=== PATIENT | male | born 1950 | race Caucasian/White ===

== ENCOUNTER 2017-12-31 07:30 | Inpatient (IN) | payer BC, MEDICARE ==
--- NOTE | 2017-12-27 18:14 | HP ---
HISTORY AND PHYSICAL: DATE OF ADMISSION: 12/31/17 DATE OF OFFICE VISIT: 12/26/17 ATTENDING PHYSICIAN: Dr. Weiss.* (DICTATED BY BAUDILIO RODRIGUEZ) REASON FOR VISIT: History and physical prior to undergoing a left knee patellofemoral arthroplasty by Dr. Weiss on 12/31/17. CHIEF COMPLAINT: Left knee pain. HISTORY OF PRESENT ILLNESS: The patient is a very pleasant 67-year-old male who is scheduled to undergo a left knee patellofemoral arthroplasty by Dr. Weiss on 12/31/17. The patient had been set up for the same procedure last June; however, was admitted for rhabdomyolysis as well as breathing issues. At this time frame, the patient has been cleared for surgery by his primary care doctor, Dr. Cast, on 12/14/17 and he continues to have pain in his left knee, which causes him difficulty with walking. PAST MEDICAL HISTORY: 1. Hypertension. 2. Diabetes. 3. Chronic depression. 4. History of TIAs. 5. Sinus infections. 6. Hyperlipidemia. 7. Postlaminectomy syndrome, cervical fusion. 8. Cervical radiculopathy. 9. Degenerative disk disease. 10. Cellulitis of foot approximately 20 years ago. 11. BPH. 12. Lumbar disk disease. PAST SURGICAL HISTORY: 1. Neck surgery in 2013. 2. Bunionectomy, right foot in 2013. 3. Kidney stone resection in 2015. 4. Left elbow MRSA infection. 5. Left knee arthroscopy approximately 20 years ago. 6. Hiatal hernia repair. 7. Left hand carpal tunnel release. 8. Nerve block from neck and back side, status post fusion in the L5 area. CURRENT MEDICATIONS: 1. Trazodone ER 150 mg extended release at bedtime. 2. Clonazepam 0.5 mg 2 tablets b.i.d. 3. Gabapentin 400 mg 1 tablet q.h.s. 4. Bupropion 150 mg tablet extended release b.i.d. 5. Venlafaxine 150 mg 1 tablet extended release b.i.d. 6. Fish oil 1000 mg 1 tablet daily. 7. Glucosamine chondroitin 1 tablet daily. 8. Centrum Silver multivitamin daily. 9. Yamel-C tablet 1000 mg daily. 10. Calcium 600 mg 1 tablet orally daily. 11. Vitamin B12 1000 mcg extended release daily. 12. Vitamin D3 1000 units 1 capsule orally daily. 13. Vitamin E 400 units 1 capsule orally daily. 14. Lamotrigine 100 mg daily q.a.m. 15. Simvastatin 20 mg 1 tablet q.h.s. 16. Plavix 75 mg 1 tablet daily. 17. Galantamine hydrobromide 16 mg 1 tablet daily. 18. Flomax 0.4 mg 1 tablet daily. 19. Januvia 100 mg 1 tablet daily. 20. Glimepiride 4 mg 1 tablet with breakfast or main meal daily. 21. Levothyroxine 50 mcg tablet 1 tablet daily. 22. Testosterone 200 mg/mL solution 1 mL intramuscularly once a month. 23. EpiPen p.r.n. 24. . FAMILY HISTORY: Mother , diagnosed with unspecific heart disease. Father with stroke and sepsis, diagnosed with unspecified cerebral artery occlusion. Spouse . SOCIAL HISTORY: Nonsmoker. Minimal alcohol use. Currently, living alone. Postoperatively, he is planning to stay with a family member for rehabilitation. REVIEW OF SYSTEMS: General: No recent weight loss or gain. No lightheadedness or dizziness. No other history of syncopal episodes or falls since hospital admission. HEENT: No headaches. No vision changes. GI: Negative for nausea, vomiting, constipation, diarrhea. No blood seen in his stools. : Negative for urinary frequency, urgency. The patient does have a history of BPH. No history of recent kidney infection. Lungs: Denies shortness of breath or difficulty with breathing. No chronic cough. Heart: Denies palpitations, chest pain. Infectious: History of MRSA approximately 16 years ago. No history of hepatitis or HIV. Integument: No open wounds or sores. No difficulty with wound healing. Endocrine: Positive history of diabetes and positive hypothyroidism. PHYSICAL EXAMINATION General Appearance: No acute distress. Alert and oriented. Appears stated age. HEENT: Normocephalic, atraumatic. EOMI. Heart: Regular rate and rhythm. No murmurs, gallops, or rubs. Lungs: Clear to auscultation bilaterally. Abdomen: Soft, nontender, nondistended. No CVA tenderness bilaterally. Neurological: Sensation intact to light touch in bilateral lower extremities. Negative Homans' sign. Left lower extremity, posterior tibial pulses 2+. Positive dorsiflexion and plantar flexion. Range of motion 5 to 130 degrees. Positive crepitus. There was no other varus or valgus stresses. No pain associated. Positive tenderness with patella. DIAGNOSTIC STUDIES/LABORATORY DATA: X-ray of the knees including AP, tunnel and sunrise views show bi-patella that is shifted. The patient had an MRI performed on 11/23/16. ASSESSMENT: Left knee osteoarthritis, patellofemoral. PLAN: The patient is to undergo a left patellofemoral arthroplasty with Dr. Weiss on 12/31/17. He has been medically cleared by his primary doctor, Dr. Cast, for the procedure. We will contact his primary care doctor with regards to his Plavix- is OK to hold for procedure, patient has not taken 5 days prior to procedure. BAUDILIO RODRIGUEZ [id number]/[facility] #: [id number] MTDSohan
[~2017-12-31 07:30] MED LIST: Acetaminophen IV 1GM/100ML * 1,000 MG/100 ML VIAL IVPB ONE; Buffered Lidocaine 0.9% SYRIN* 5 ML/SYR SYRINGE INTRADERM ONE; Famotidine IV* 10 MG/ML 2 ML (20 mg) IV ONE
[2017-12-31] MEDS ORDERED: ceFAZolin 2 GM PREMIX (*) 2 GM/50 ML BAG IVPB ONE (09:07)
[2017-12-31] MEDS ORDERED: Famotidine IV* 10 MG/ML 2 ML (20 mg) ONE (09:07)
[2017-12-31] MEDS ORDERED: Acetaminophen IV 1GM/100ML * 100 ML ONE (09:09)
[2017-12-31] MEDS ORDERED: fentaNYL* 50 MCG/ML 2 ML VIAL (100 MCG VIAL) ONE ×4 (10:22→15:36)
[2017-12-31] MEDS ORDERED: Propofol* 10 MG/ML 20 ML BTL IV PUSH ONE (10:23)
[2017-12-31] MEDS ORDERED: Lidocaine 2% PF * 5 ML VIAL ONE ×2 (10:23→13:53)
[2017-12-31] MEDS ORDERED: Etomidate* 2 MG/ML 10 ML VIAL ONE (10:23)
[2017-12-31] MEDS ORDERED: Rocuronium* 10 MG/ML VIAL ONE (10:23)
[2017-12-31] MEDS ORDERED: Midazolam* 1 MG/ML 2 ML VIAL (2 MG) ONE (10:23)
[2017-12-31] MEDS ORDERED: Bupivacaine 0.5%* 50 ML VIAL ONE (12:10)
[2017-12-31] MEDS ORDERED: Lidocaine 1% MPF wEPI 200,000* 30 ML SDV ONE (12:10)
[2017-12-31] MEDS ORDERED: oxyCODONE/Acetamin 5/325 MG* TAB PO PRN ×2 (12:49→15:06)
[2017-12-31] MEDS ORDERED: PROCHLORPERAZINE INJ 5 MG/ML 2 ML VIAL IV PRN (12:49)
[2017-12-31] MEDS ORDERED: oxyCODONE TAB* 5 MG TAB PO PRN (12:49)
[2017-12-31] MEDS ORDERED: Naloxone* 0.4 MG/ML 1 ML VIAL IV PRN (12:49)
[2017-12-31] MEDS ORDERED: diPHENhydraMINE IV* 50 MG/ML 1 ml VIAL (BENADRYL) IV PRN (12:49)
[2017-12-31] MEDS ORDERED: Scopolamine 1.5 mg* PATCH TRANSDERM PRN (12:49)
[2017-12-31] MEDS ORDERED: Phenylephrine IV* 40 MCG/ML 10 ML SYRINGE ONE (13:52)
[2017-12-31] MEDS ORDERED: Atropine 1MG/ML INJ* 1 ML VIAL ONE (14:29)
[2017-12-31] MEDS ORDERED: Glycopyrrolate IV* 0.2 MG/ML 1 ML VIAL ONE (14:29)
[2017-12-31] MEDS ORDERED: Neostigmine Methylsulfate* 1 MG/ML 10 ML VIAL (1 mg/ml) ONE (14:29)
[2017-12-31] MEDS ORDERED: Morphine VIAL* 4 MG/ML VIAL (1 ml vial) IV PRN (15:06)
[2017-12-31] MEDS ORDERED: diPHENhydraMINE PO* 25 MG PO PRN (15:06)
[2017-12-31] MEDS ORDERED: Magnesium Hydroxide LIQ* 30 ML UDC PO PRN (15:06)
[2017-12-31] MEDS ORDERED: Bisacodyl SUPP* 10 MG SUPP PR PRN (15:06)
[2017-12-31] MEDS ORDERED: Cyclobenzaprine TAB* 10 MG PO PRN (15:06)
[2017-12-31] MEDS ORDERED: Acetaminophen TAB* 325 MG PO PRN (15:06)
[2017-12-31] MEDS ORDERED: Morphine INJ* 2 MG/ML 1 ML CARPUJECT IV PRN (15:06)
[2017-12-31] MEDS ORDERED: clonazePAM TAB(*) 0.5 MG PO PRN (15:16)
[2017-12-31] MEDS: fentaNYL* 50 MCG/ML 2 ML VIAL (100 MCG VIAL) IV PRN ×3 (15:21→15:37)
[2017-12-31] MEDS ORDERED: Ketorolac INJ* 30 MG/ML 1 ML VIAL ONE (15:28)
[2017-12-31] MEDS ORDERED: D5W 1/2 NS 1000 ML BAG* 1,000 ML IV SCH (16:00)
[2017-12-31] MEDS ORDERED: HYDROmorphone INJ* 2 MG/ML CARPUJECT SYRINGE ONE (16:02)
[2017-12-31] MEDS: HYDROmorphone INJ* 1 MG/ML CARPUJECT SYRINGE IV PRN ×2 (16:04→16:24)
--- NOTE | 2017-12-31 16:35 | RAD ---
Indication: Postop LEFT patellofemoral joint replacement. Comparison: December 26, 2017 Technique: AP and crosstable lateral views LEFT knee Report: Prosthetic patellofemoral joint in place with normal alignment in the AP and crosstable lateral views. Negative for fracture. Joint effusion, intra-articular gas, and overlying soft tissue edema and subcutaneous emphysema. Anterior cutaneous el. IMPRESSION: Unremarkable immediate postop appearance following patellofemoral joint replacement.
[2017-12-31] MEDS ORDERED: Warfarin TAB(*) 10 MG PO ONE (17:00)
[2017-12-31] MEDS: Atorvastatin* 10 MG TAB PO SCH (18:01)
[2017-12-31] MEDS: oxyCODONE/Acetamin 5/325 MG* TAB PO PRN ×2 (18:01→23:44)
[2017-12-31] MEDS ORDERED: Dextrose 50% Syringe 50 ML* 25 GM/50 ML SYRINGE IV PUSH PRN (18:31)
[2017-12-31] MEDS: NS 0.9% 1000 ML* 1,000 ML IV SCH (18:44)
[2017-12-31] MEDS: oxyCODONE TAB* 5 MG TAB PO PRN (20:02)
[2017-12-31] MEDS: traZODone TAB* 100 MG PO SCH (20:03)
[2017-12-31] MEDS: Venlafaxine EXT RELEASE CAP* 75 MG PO SCH (20:03)
[2017-12-31] MEDS: buPROPion SR TAB.SR* 150 MG PO SCH (20:04)
[2017-12-31] MEDS: Docusate CAP* 100 MG PO SCH (20:05)
[2017-12-31] MEDS: Gabapentin CAP(*) 400 MG PO SCH (20:05)
[2017-12-31] MEDS: Magnesium Hydroxide LIQ* 30 ML UDC PO SCH (20:06)
[2017-12-31] MEDS: ceFAZolin 1 GM in Dextrose (*) 1 GM/50 ML BAG IVPB SCH (21:14)
--- NOTE | 2017-12-31 22:05 | CONS ---
CONSULTATION REPORT: DATE OF CONSULT: 12/31/17 ATTENDING PHYSICIAN: Dr. Weiss. CONSULTING PHYSICIAN: Oscar Soler MD (dictation provided by Elizabeth Gerardo NP). REASON FOR CONSULT: Medical co-management in a patient admitted for knee surgery. HISTORY OF PRESENT ILLNESS: Mr. Goodwin is a 67-year-old male with a past medical history of hypertension (not on medications outpatient), diabetes not on insulin, history of TIAs with some balance difficulties, who presented to the hospital today for left knee patellofemoral arthroplasty with Dr. Weiss. Please see the dictated H and P from BAUDILIO Campos for complete details. In brief, the patient had ongoing right knee pain and had opted for operative intervention with Dr. Weiss today. The patient had been seen preoperatively for cardiac evaluation by Dr. Chele Cast, who is his primary care physician , and he had felt that he was optimized from a cardiac perspective and could proceed with surgery. Patient states that prior to coming in, he has had no acute complaints. He states his blood sugar is well controlled on his home regimen. He is not taking medications for blood pressure as he no longer needs them. PAST MEDICAL HISTORY: 1. Hypertension. 2. Type 2 diabetes, non-insulin dependent. 3. Chronic depression. 4. History of TIAs. 5. Sinus infections. 6. Hyperlipidemia. 7. Postlaminectomy syndrome, cervical fusion. 8. Cervical radiculopathy. 9. Degenerative disk disease. 10. Cellulitis of foot approximately 20 years ago. 11. BPH. 12. Lumbar disk disease. PAST SURGICAL HISTORY: Neck surgery in 2013; bunionectomy, right foot, 2013; kidney stone resection, 2015; left elbow MRSA infection, left knee arthroscopy approximately 20 years ago; hiatal hernia repair; left hand carpal tunnel release; nerve block from neck, status post fusion in the L5 area. MEDICATIONS: Outpatient: 1. Caltrate 600 plus D 1 tab p.o. q.a.m. 2. Ascorbic acid 1000 mg p.o. q.a.m. 3. Galantamine 16 mg p.o. q.a.m. 4. Gabapentin 400 mg p.o. at bedtime. 5. Cyanocobalamin 2000 mcg p.o. q.a.m. 6. Oxycodone with acetaminophen 7.5/325, 1 tablet p.o. 6 hours p.r.n. 7. Nassawad[place]-3 fatty acid 1000 mg p.o. q.a.m. 8. Levothyroxine 50 mcg p.o. q.a.m. 9. Glimepiride 4 mg p.o. q.a.m. 10. Bupropion SR 150 mg p.o. b.i.d. 11. Vitamin E 400 units p.o. q.a.m. 12. Venlafaxine ER 150 mg p.o. b.i.d. 13. Tamsulosin 0.4 mg p.o. q.a.m. 14. Simvastatin 20 mg p.o. daily. 15. Trazodone 150 mg p.o. at bedtime. 16. Lamotrigine 100 mg p.o. q.a.m. 17. Clonazepam 0.5 mg p.o. b.i.d. p.r.n. 18. Sitagliptin 100 mg p.o. q.a.m. 19. Multivitamin with mineral 1 tablet p.o. q.a.m. 20. Glucosamine and chondroitin 1 cap p.o. q.a.m. 21. Testosterone 200 mg IM monthly. 22. Clopidogrel 75 mg p.o. q.a.m. ALLERGIES: FESOTERODINE, MIRABEGRON, OXYBUTYNIN. FAMILY HISTORY: Mother with unspecified heart disease. Father with stroke and sepsis as well as unspecified cerebral artery occlusion. SOCIAL HISTORY: No report of smoking. Patient lives alone. He drinks alcohol very minimally. REVIEW OF SYSTEMS: A 14-point review of systems was completed with Mr. Goodwin and all those not mentioned above were negative. PHYSICAL EXAM: Vital Signs: Temperature 98.8, pulse rate 77, respiratory rate 18, O2 saturation 97% on 2 L nasal cannula, blood pressure 155/89. General: Mr. Goodwin is sitting up in the bed. He is eating dinner, in no acute distress. Neuro: He is alert. He is oriented x3. He moves all extremities equally. There is no focal weakness and sensory loss. Heart: S1 and S2. No murmurs, rubs, or gallops and regular. Lungs are clear to auscultation bilaterally. No accessory muscle use and good aeration. Abdomen is soft and nontender with bowel sounds positive x4. Extremities: No cyanosis or edema. Skin is intact. DIAGNOSTIC STUDIES/LAB DATA: On 12/14/17, WBC is 6.8, hemoglobin 14.8, hematocrit 44, platelet count 215,000. Sodium 138, potassium 3.8, chloride 106 , serum bicarbonate 25, BUN 23, creatinine 1.28, glucose 187. ASSESSMENT: Mr. Goodwin is a 67-year-old male with past medical history of diabetes and transient ischemic attacks, who presents to the hospital today with plan for a right knee surgery with Dr. Weiss. Our recommendations are as follows: 1. Status post right patellofemoral arthroplasty: Management per orthopedic services. Patient will have PT and OT. Patient will have pain medications p.r.n. with a bowel regimen. We will monitor H and H. 2. Diabetes: Plan to switch from D5 half normal saline to normal saline. Patient will have a consistent carbohydrate diet. We will hold his glimepiride and Januvia. He will have blood glucoses q.a.c. with lispro sliding scale coverage. 3. Hypertension: Patient's blood pressure is running about 155 to 170 and this is in the acute postoperative period. I would like to continue to monitor for now and we can add medications as needed. He is not on blood pressure medication as outpatient. 4. Hyperlipidemia and history of stroke: Continue atorvastatin. 5. Depression: Continue bupropion. 6. Anxiety: Continue clonazepam. 7. DVT prophylaxis with warfarin, per Ortho. 8. Code status is full code. TIME SPENT: Approximately 50 minutes were spent on the consultation of this patient, more than half the time spent with the patient at the bedside reviewing the events leading up to this hospitalization, performing the physical examination, and reviewing my plan of care. ELIZABETH GERARDO NP [id number]/[facility] #: [id number] ANAND
[2018-01-01] MEDS: NS 0.9% 1000 ML* 1,000 ML IV SCH ×2 (03:22→13:12)
[2018-01-01] MEDS: oxyCODONE TAB* 5 MG TAB PO PRN ×2 (03:26→19:57)
--- NOTE | 2018-01-01 03:41 | OP ---
DATE OF OPERATION: 12/31/17 - ROOM #335 DATE OF : 52 SURGEON: Otto Weiss MD FUEL AGENT: Gloria Owens RPA ANESTHESIA: Regional and general. PRE-OP DIAGNOSIS: Osteoarthritis, left patellofemoral joint. POST-OP DIAGNOSIS: Osteoarthritis, left patellofemoral joint. OPERATIVE PROCEDURE: Left patellofemoral joint arthroplasty. ESTIMATED BLOOD LOSS: Less than 25 cc. COMPLICATIONS: None. HARDWARE: Linda Persona #3 femur, 32 mm patella. SUMMARY: Mr. Goodwin is a 67-year-old male who has been having trouble with bilateral knee pain. On the left, he had very specific issues with his patellofemoral joint and had a hypoplastic set of condyles. There is also an element of instability as he could be easily be pulled one side to the other. He also had very specific crepitus and pain with compression. He had been treated conservatively with anti-inflammatories, physical therapy, injections but still had very specific complaints. I discussed with him that a patellofemoral arthroplasty should work well to decrease his pain and improve his function. Risk of surgery such as continued pain, scar formation, stiffness , DVT, pulmonary embolism, hardware failure were some of the risks discussed. He had wished to proceed. DESCRIPTION OF PROCEDURE: Patient was brought to the OR after a femoral nerve block was placed in the holding area. General anesthesia was introduced. Mckinley catheter was placed. Tourniquet was placed over the proximal left thigh and was used during the case and tourniquet time would be approximately 1 hour. Left knee was prepped and then draped. Esmarch was used to exsanguinate the leg and tourniquet was raised. Midline incision was made, centered above the patella and aiming down towards the medial side of the tibial tubercle. Incision was carried down through the skin and subcutaneous tissues. Small bleeders encountered were ligated using electrocautery. Extensor mechanism was exposed and a sharp parapatellar arthrotomy was made. Quite a bit of clear yellowish joint fluid was encountered. Care was taken not to plunge, though I did not want to damage the weightbearing surface of his medial femoral condyle. Fat pad was sharply excised and patella measured 24 mm in thickness. A nice 10 mm cut was taken. Patella was easily subluxated laterally and the knee was flexed up a little bit giving nice exposure to the topside and some of the distal femur. Drill was used to open the femoral canal and intramedullary guide was placed. Guide was adjusted until it was parallel with his epicondyles and then pinned into place. Height was then adjusted so that it appeared it would come right across the top side of his condyles. Quite hypoplastic condyles were present. Cutting guide was then pinned into place and anterior femoral cut was then taken. This was sized and the 3 seemed to fit quite nicely. This was then pinned into place and the bone mill was then run. Unfortunately, I believe the contacts are all the way down as opposed to in the middle and as a result almost no bone was taken. This was readjusted until it sat in the middle and then some bone now was resected. Three drill guide was placed and holes were drilled and trial was placed. This now sat better as it was a little countersunk on the medial side and perfectly flushed on the lateral side. Without a patella trial with flexion and extension, patella tracking seemed fine. Patella was sized and a 32 seemed to fit quite well. Holes were drilled and trial was snapped into place. Patella tracking was quite good. Trial instrumentation was removed and the knee was copiously pulse lavaged. Cement was being prepared. Femur and patella were both cemented into placed and the cement was allowed to hardened. Knee was then searched once the cement had hardened for excess cement and few small pieces were found. Knee was again copiously pulse lavaged. Parapatellar arthrotomy was repaired using interrupted #1 Vicryl sutures and the tourniquet was let down. No significant bleeding was encountered. Knee was again copiously pulse lavaged and the subcutaneous tissue was reapproximated with 2-0 Vicryl. Skin was closed using el. Gloria Owens was present throughout the case and was instrumental in positioning, instrument retraction, searching for cement, and the case could not have been done without her as the account assistant. Patient was then extubated in the OR and was stable on transfer to the recovery room. [id number]/[facility] #: [id number] MTDD
[2018-01-01] MEDS: Levothyroxine TAB* 50 MCG TAB PO SCH (05:20)
[2018-01-01] MEDS: ceFAZolin 1 GM in Dextrose (*) 1 GM/50 ML BAG IVPB SCH ×2 (05:22→13:12)
[2018-01-01 07:27] LABS: Hematocrit 38 % (42-52); Hemoglobin 12.8 g/dl (14.0-18.0); Mean Platelet Volume 8.3 um3 (7.4-10.4); Platelet Count 142 10^3/ul (150-450)
[2018-01-01 07:34] LABS: INR 0.97 (0.77-1.02)
[2018-01-01] MEDS: Insulin LISPRO* 1 UNITS UNIT SUBCUT SCH ×3 (07:40→18:22)
[2018-01-01] MEDS: oxyCODONE/Acetamin 5/325 MG* TAB PO PRN ×4 (08:02→22:16)
[2018-01-01] MEDS ORDERED: SITAGLIPTIN 100 MG PO SCH (09:00)
[2018-01-01] MEDS ORDERED: CMCS Glimepiride (NF) 2 MG TAB PO SCH (09:00)
[2018-01-01] MEDS: buPROPion SR TAB.SR* 150 MG PO SCH ×2 (09:07→22:17)
[2018-01-01] MEDS: Venlafaxine EXT RELEASE CAP* 75 MG PO SCH ×2 (09:07→22:17)
[2018-01-01] MEDS: Docusate CAP* 100 MG PO SCH ×2 (09:08→22:19)
[2018-01-01] MEDS: Vitamin THERAPEUTIC TAB PO SCH (09:08)
[2018-01-01] MEDS: Magnesium Hydroxide LIQ* 30 ML UDC PO SCH ×2 (09:08→22:19)
[2018-01-01] MEDS: lamoTRIgine TAB(*) 100 MG PO SCH (09:08)
[2018-01-01] MEDS: Tamsulosin CAP* 0.4 MG PO SCH (09:08)
[2018-01-01] MEDS: GALANTAMINE 16 MG PO SCH (09:09)
[2018-01-01] MEDS: BOR PO SCH (09:10)
[2018-01-01] MEDS: MANG PO SCH (09:10)
[2018-01-01] MEDS: MAG11 PO SCH (09:10)
[2018-01-01] MEDS: ZINC PO SCH (09:10)
[2018-01-01] MEDS: CAL PO SCH (09:10)
[2018-01-01] MEDS: COP PO SCH (09:10)
[2018-01-01] MEDS: D3 PO SCH (09:10)
--- NOTE | 2018-01-01 10:30 | PN ---
Progress Note - Progress Note Date of Service: 01/01/18 SOAP: Subjective: [Pt was seen today lying in bed. No complaints. Pain is well controlled. States that he slept well with the exception of the interruptions during the night from staff checking on him. Denies any numbness or tingling. No chest pain or SOB. Pt would like to not have his moran catheter out today. He states that should he have the catheter out before 1 week his urethra will swell up and he will be unable to urinate. ] Objective: [General: Pt is alert and oriented. NAD MSK: LLE: Left knee inspection reveals a dressing that is c/d/i. pt is able to df/pf and able to lift thigh off bed. He has full sensation to light touch distally. 2+DP pulse present. ] Vital Signs Temp 98.8 F 01/01/18 07:19 Pulse 80 01/01/18 07:19 Resp 18 01/01/18 08:02 BP 104/63 01/01/18 07:19 Pulse Ox 93 01/01/18 07:19 Intake & Output 12/31/17 01/01/18 01/01/18 18:59 06:59 18:59 Intake Total 2125 1304 150 Output Total 375 1450 Balance 1750 -146 150 Weight 210 lb Intake: IV Fluids 2050 950 LR 2000 NS (0.9%) 950 NS 50ML, Cefazolin 2G 50 IVPB 54 ABX - CEFAZOLIN 54 Oral 75 300 150 Output: Moran 375 1450 Other: # Bowel Movements 0 Assessment: [S/P Left patellafemoral joint arthroplasty ] Plan: [1. It was discussed with the pt that should he not have the catheter out today there is an increased chance of infection. It was also explained should we pull the catheter out today and problems develop we would have urology become involved in treatment. He understood this but still refused to have his catheter out. Dr. Weiss was made aware and will speak with the pt also. 2. Continue with current anticoagulation 3. WBAT, continue with PT/OT 4. Pain medication as needed ]
[2018-01-01] MEDS: Heparin VIAL(*) 5000 UNITS/ML VIAL (FIVE THOUSAND) SUBCUT SCH ×2 (12:17→22:20)
[2018-01-01] MEDS: Clopidogrel TAB* 75 MG PO SCH (12:17)
[2018-01-01] MEDS: Atorvastatin* 10 MG TAB PO SCH (16:06)
[2018-01-01] MEDS ORDERED: Warfarin TAB(*) 4 MG PO ONE (17:00)
--- NOTE | 2018-01-01 19:37 | PN ---
Subjective Date of Service: 01/01/18 Interval History: Mr. Goodwin states that his knee pain is not well controlled this afternoon. He has received pain meds and is working with his nurse to achieve better pain control. He denies other complaint including chest pain, SOB, nausea, or abdominal pain. Objective Active Medications: Acetaminophen (Tylenol Tab*) 650 mg PO Q4H PRN Atorvastatin Calcium (Lipitor*) 10 mg PO 1700 LYNNE Bisacodyl (Dulcolax Supp*) 10 mg MI DAILY PRN Bupropion HCl (Wellbutrin Sr Tab*) 150 mg PO BID LYNNE Clonazepam (Klonopin Tab(*)) 0.5 mg PO BID PRN Clopidogrel Bisulfate (Plavix Tab*) 75 mg PO QAM LYNNE Cyclobenzaprine HCl (Flexeril Tab*) 10 mg PO TID PRN Dextrose (D50w Syringe 50 Ml*) 12.5 gm IV PUSH .FOR FS < 60 - SS PRN Diphenhydramine HCl (Benadryl Po*) 25 mg PO Q6H PRN Docusate Sodium (Colace Cap*) 100 mg PO BID LYNNE Gabapentin (Neurontin Cap(*)) 400 mg PO BEDTIME LYNNE Galantamine Hydrobromide (Galantamine Er (Nf)) 16 mg PO QAM LYNNE Heparin Sodium (Porcine) (Heparin Vial(*)) 5,000 units SUBCUT Q12HR LYNNE Sodium Chloride (Ns 0.9% 1000 Ml*) 1,000 mls @ 100 mls/hr IV PER [facility] Insulin Human Lispro (Humalog*) 0 units SUBCUT AC LYNNE Ketorolac Tromethamine (Toradol Inj*) 15 mg IV PUSH Q6H LYNNE Lamotrigine (Lamictal Tab(*)) 100 mg PO QAM LYNNE Levothyroxine Sodium (Synthroid Tab*) 50 mcg PO 0600 LYNNE Magnesium Hydroxide (Milk Of Magnesia Liq*) 30 ml PO BID LYNNE Magnesium Hydroxide (Milk Of Magnesia Liq*) 30 ml PO Q6H PRN Morphine Sulfate (Morphine Inj (Syringe)*) 2 mg IV Q2H PRN Morphine Sulfate (Morphine Vial*) 4 mg IV Q2H PRN Multivitamins (Theragran Tab*) 1 tab PO DAILY LYNNE Non-Formulary Medication (Josep/D3/Mag11/Zinc/Service Line Coordinator/Ld/Bor [Caltrate 600+D Plus Tablet]) 1 tab PO QAM LYNNE Oxycodone HCl (Roxycodone Tab*) 10 mg PO Q4H PRN Oxycodone/Acetaminophen (Percocet 5/325 Tab*) 2 tab PO Q4H PRN Oxycodone/Acetaminophen (Percocet 5/325 Tab*) 1 tab PO Q4H PRN Pharmacy Profile Note (Scopolamine Patch Remove*) 1 note PATCH OFF Q72H ONE Pharmacy Profile Note (Coumadin Daily Reminder*) 1 note FOLLOW UP 1700 LYNNE Scopolamine (Transderm-Scop 1.5 Mg Patch*) 1 patch TRANSDERM Q72H PRN Tamsulosin HCl (Flomax Cap*) 0.4 mg PO QAM LYNNE Trazodone HCl (Desyrel Tab*) 150 mg PO BEDTIME LYNNE Venlafaxine HCl (Effexor Xr Cap*) 150 mg PO BID LYNNE Vital Signs: Temp Pulse Resp BP Pulse Ox 98.6 F 78 16 121/77 93 01/01/18 15:15 01/01/18 15:15 01/01/18 19:29 01/01/18 15:15 01/01/18 16:00 Oxygen Devices in Use Now: None Appearance: Male sitting up in bed in NAD Eyes: No Scleral Icterus Ears/Nose/Mouth/Throat: Mucous Membranes Moist Neck: Trachea Midline Respiratory: Symmetrical Chest Expansion and Respiratory Effort, Clear to Auscultation Cardiovascular: NL Sounds; No Murmurs; No JVD, No Edema Abdominal: No Hepatosplenomegaly Lymphatic: No Cervical Adenopathy Extremities: No Edema Skin: No Rash or Ulcers Neurological: Alert and Oriented x 3, NL Muscle Strength and Tone Nutrition: Taking PO's Result Diagrams: 01/01/18 06:57 01/01/18 06:57 Assess/Plan/Problems-Billing Assessment: Mr. Goodwin is a 67 yo male with a PMH of diabetes and htn who was admitted on 12/31/17 for a left patellofemoral joint arthroplasty. - Patient Problems (1) S/P left knee surgery Comment: - Management per ortho. - Continuing adjusting pain meds, continue bowel regimen. - PT/OT. - Monitor H/H. (2) BPH (benign prostatic hyperplasia) Comment: - Has history of urinary retention post op and is concerned about removing moran tomorrow. - Wound recommend discussing with urology before removing moran given difficulties in the past, may need to go home with catheter. (3) Diabetes Comment: - BGs well controlled. - Hold home meds and continue lispro SSI coverage with meals. (4) Hypertension Comment: - BP well controlled. - Not on meds outpatient. (5) Hyperlipidemia Comment: - Continue atorvastatin. (6) Hypothyroid Comment: - Stable. Continue Synthroid. TSH wnl 07/16/17. (7) Depression with anxiety Comment: - Continue clonazepam, buproprion, venlafexine, lamictal. (8) DVT prophylaxis Comment: - warfarin with heparin sq per ortho (9) Full code status Comment: Status and Disposition: Disposition per ortho.
[2018-01-01] MEDS: Gabapentin CAP(*) 400 MG PO SCH (22:15)
[2018-01-01] MEDS: traZODone TAB* 100 MG PO SCH (22:16)
[2018-01-02] MEDS: oxyCODONE TAB* 5 MG TAB PO PRN ×2 (00:57→21:59)
[2018-01-02] MEDS: Ketorolac INJ* 15 MG/ML 1 ML VIAL IV PUSH SCH ×2 (00:59→06:11)
[2018-01-02] MEDS: oxyCODONE/Acetamin 5/325 MG* TAB PO PRN ×3 (06:07→18:06)
[2018-01-02] MEDS: Levothyroxine TAB* 50 MCG TAB PO SCH (06:07)
[2018-01-02] MEDS: Insulin LISPRO* 1 UNITS UNIT SUBCUT SCH ×3 (07:24→18:06)
[2018-01-02 08:26] LABS: Hematocrit 36 % (42-52); Hemoglobin 12.2 g/dl (14.0-18.0); Mean Platelet Volume 8.2 um3 (7.4-10.4); Platelet Count 138 10^3/ul (150-450)
[2018-01-02 08:32] LABS: INR 1.46 (0.77-1.02)
[2018-01-02] MEDS: Vitamin THERAPEUTIC TAB PO SCH (09:04)
[2018-01-02] MEDS: Venlafaxine EXT RELEASE CAP* 75 MG PO SCH ×2 (09:04→21:48)
[2018-01-02] MEDS: Clopidogrel TAB* 75 MG PO SCH (09:04)
[2018-01-02] MEDS: buPROPion SR TAB.SR* 150 MG PO SCH ×2 (09:04→21:48)
[2018-01-02] MEDS: D3 PO SCH (09:05)
[2018-01-02] MEDS: Magnesium Hydroxide LIQ* 30 ML UDC PO SCH ×2 (09:05→22:05)
[2018-01-02] MEDS: MAG11 PO SCH (09:05)
[2018-01-02] MEDS: Docusate CAP* 100 MG PO SCH ×2 (09:05→22:04)
[2018-01-02] MEDS: Heparin VIAL(*) 5000 UNITS/ML VIAL (FIVE THOUSAND) SUBCUT SCH ×2 (09:05→21:51)
[2018-01-02] MEDS: Tamsulosin CAP* 0.4 MG PO SCH (09:05)
[2018-01-02] MEDS: lamoTRIgine TAB(*) 100 MG PO SCH (09:05)
[2018-01-02] MEDS: COP PO SCH (09:05)
[2018-01-02] MEDS: CAL PO SCH (09:05)
[2018-01-02] MEDS: BOR PO SCH (09:05)
[2018-01-02] MEDS: ZINC PO SCH (09:05)
[2018-01-02] MEDS: MANG PO SCH (09:05)
[2018-01-02] MEDS: GALANTAMINE 16 MG PO SCH (09:05)
--- NOTE | 2018-01-02 11:33 | PN ---
Progress Note - Progress Note Date of Service: 01/02/18 SOAP: Subjective: []Patient seen at bedside. Denies CP, SOB, Dizziness, Nausea. He is concerned over ability to void after moran removal and questions plans for discharge. Objective: [] Vital Signs Temp 98.2 F 01/02/18 07:11 Pulse 79 01/02/18 07:11 Resp 18 01/02/18 10:06 BP 141/66 01/02/18 07:11 Pulse Ox 93 01/02/18 07:26 Intake & Output 01/01/18 01/02/18 01/02/18 18:59 06:59 18:59 Intake Total 2338 790 225 Output Total 700 1825 Balance 1638 -1035 225 Intake: IV Fluids 1264 NS (0.9%) 1264 IVPB 114 ABX - CEFAZOLIN 114 Oral 960 790 225 Output: Moran 700 1825 Other: # Bowel Movements 0 Laboratory Last Values Hgb 12.2 g/dl (14.0-18.0) L 01/02/18 07:48 Hct 36 % (42-52) L 01/02/18 07:48 Plt Count 138 10^3/ul (150-450) L 01/02/18 07:48 MPV 8.2 um3 (7.4-10.4) 01/02/18 07:48 INR (Anticoag Therapy) 1.46 (0.77-1.02) H 01/02/18 07:48 Sodium 139 mmol/L (139-145) 01/01/18 06:57 Potassium 3.9 mmol/L (3.5-5.0) 01/01/18 06:57 Chloride 109 mmol/L (101-111) 01/01/18 06:57 Carbon Dioxide 26 mmol/L (22-32) 01/01/18 06:57 Anion Gap 4 mmol/L (2-11) 01/01/18 06:57 BUN 11 mg/dL (6-24) 01/01/18 06:57 Creatinine 1.37 mg/dL (0.67-1.17) H 01/01/18 06:57 Est GFR ( Amer) 66.9 (>60) 01/01/18 06:57 Est GFR (Non-Af Amer) 52.0 (>60) 01/01/18 06:57 BUN/Creatinine Ratio 8.0 (8-20) 01/01/18 06:57 Glucose 100 mg/dL (70-100) 01/01/18 06:57 POC Glucose (mg/dL) 97 mg/dL (70-100) 01/02/18 07:21 Calcium 8.3 mg/dL (8.6-10.3) L 01/01/18 06:57 General: Well appearing, NAD LLE: Dressing changed. Incision with well approximated wound edges, CDI without discharge and without erythema. Thigh soft. DF/PF intact. 2+ DP pulse. Sensation intact to light touch distally. BL LE: Calves supple and nontender without erythema, edema or palpable cords Assessment: []POD 2 sp left knee parellofemoral arthroplasty Plan: []WBAT PT/OT Lovenox, Coumadin 3 mg If no urination in 8 hours bladder scan, straight cath if discomfort or more than 400 ml and consult urology due to history Likely DC home tomorrow. recreation manager discussed DC plans today
--- NOTE | 2018-01-02 13:07 | PN ---
Subjective Date of Service: 01/02/18 Interval History: Aelx reports doing well today. His Mckinley catheter was removed this AM, has not voided since. Denies abdominal pain, knee pain, chest pain or SOB. He is worried about urinating after catheter removed; otherwise, he has no complains. Family History: Unchanged from Admission Social History: Unchanged from Admission Past Medical History: Unchanged from Admission Objective Active Medications: Acetaminophen (Tylenol Tab*) 650 mg PO Q4H PRN PRN Reason: FEVER/PAIN Atorvastatin Calcium (Lipitor*) 10 mg PO 1700 [facility] Last Admin: 01/01/18 16:06 Dose: 10 mg Bisacodyl (Dulcolax Supp*) 10 mg AK DAILY PRN PRN Reason: constipation Bupropion HCl (Wellbutrin Sr Tab*) 150 mg PO BID [facility] Last Admin: 01/02/18 09:04 Dose: 150 mg Clonazepam (Klonopin Tab(*)) 0.5 mg PO BID PRN PRN Reason: ANXIETY Clopidogrel Bisulfate (Plavix Tab*) 75 mg PO QAM [facility] Last Admin: 01/02/18 09:04 Dose: 75 mg Cyclobenzaprine HCl (Flexeril Tab*) 10 mg PO TID PRN PRN Reason: SPASMS Last Admin: 01/01/18 18:21 Dose: 10 mg Dextrose (D50w Syringe 50 Ml*) 12.5 gm IV PUSH .FOR FS < 60 - SS PRN PRN Reason: FS < 60 Diphenhydramine HCl (Benadryl Po*) 25 mg PO Q6H PRN PRN Reason: itching Docusate Sodium (Colace Cap*) 100 mg PO BID [facility] Last Admin: 01/02/18 09:05 Dose: Not Given Gabapentin (Neurontin Cap(*)) 400 mg PO BEDTIME [facility] Last Admin: 01/01/18 22:15 Dose: 400 mg Galantamine Hydrobromide (Galantamine Er (Nf)) 16 mg PO QAM [facility] Last Admin: 01/02/18 09:05 Dose: Not Given Heparin Sodium (Porcine) (Heparin Vial(*)) 5,000 units SUBCUT Q12HR [facility] Last Admin: 01/02/18 09:05 Dose: 5,000 units Sodium Chloride (Ns 0.9% 1000 Ml*) 1,000 mls @ 100 mls/hr IV PER RATE [facility] Last Admin: 01/01/18 13:12 Dose: 100 mls/hr Insulin Human Lispro (Humalog*) 0 units SUBCUT AC [facility] PRN Reason: Protocol Last Admin: 01/02/18 12:51 Dose: 2 unit Lamotrigine (Lamictal Tab(*)) 100 mg PO QAM [facility] Last Admin: 01/02/18 09:05 Dose: 100 mg Levothyroxine Sodium (Synthroid Tab*) 50 mcg PO 0600 [facility] Last Admin: 01/02/18 06:07 Dose: 50 mcg Magnesium Hydroxide (Milk Of Magnesia Liq*) 30 ml PO BID [facility] Last Admin: 01/02/18 09:05 Dose: Not Given Magnesium Hydroxide (Milk Of Magnesia Liq*) 30 ml PO Q6H PRN PRN Reason: constipation Morphine Sulfate (Morphine Inj (Syringe)*) 2 mg IV Q2H PRN PRN Reason: PAIN - BREAKTHROUGH Last Admin: 01/01/18 17:49 Dose: 2 mg Morphine Sulfate (Morphine Vial*) 4 mg IV Q2H PRN PRN Reason: PAIN - UNCONTROLLED Last Admin: 01/01/18 19:57 Dose: 4 mg Multivitamins (Theragran Tab*) 1 tab PO DAILY [facility] Last Admin: 01/02/18 09:04 Dose: 1 tab Non-Formulary Medication (Josep/D3/Mag11/Zinc/Relay Mechanic/Ld/Bor [Caltrate 600+D Plus Tablet]) 1 tab PO QAM [facility] Last Admin: 01/02/18 09:05 Dose: Not Given Oxycodone HCl (Roxycodone Tab*) 10 mg PO Q4H PRN PRN Reason: PAIN - SEVERE Last Admin: 01/02/18 00:57 Dose: 10 mg Oxycodone/Acetaminophen (Percocet 5/325 Tab*) 2 tab PO Q4H PRN PRN Reason: PAIN - MODERATE Last Admin: 01/02/18 10:06 Dose: 2 tab Oxycodone/Acetaminophen (Percocet 5/325 Tab*) 1 tab PO Q4H PRN PRN Reason: PAIN - MILD Pharmacy Profile Note (Scopolamine Patch Remove*) 1 note PATCH OFF Q72H ONE Stop: 01/03/18 12:50 Pharmacy Profile Note (Coumadin Daily Reminder*) 1 note FOLLOW UP 1700 [facility] Last Admin: 01/01/18 16:07 Dose: 1 note Scopolamine (Transderm-Scop 1.5 Mg Patch*) 1 patch TRANSDERM Q72H PRN PRN Reason: Nausea/Vomiting Tamsulosin HCl (Flomax Cap*) 0.4 mg PO QAM [facility] Last Admin: 01/02/18 09:05 Dose: 0.4 mg Trazodone HCl (Desyrel Tab*) 150 mg PO BEDTIME [facility] Last Admin: 01/01/18 22:16 Dose: 150 mg Venlafaxine HCl (Effexor Xr Cap*) 150 mg PO BID [facility] Last Admin: 01/02/18 09:04 Dose: 150 mg Warfarin Sodium (Coumadin Tab(*)) 3 mg PO ONCE@1700 ONE PRN Reason: Protocol Stop: 01/02/18 17:01 Vital Signs - 8 hr 01/02/18 01/02/18 01/02/18 06:07 07:11 07:26 Temperature 98.2 F Pulse Rate 79 Respiratory 16 17 17 Rate Blood Pressure 141/66 (mmHg) O2 Sat by Pulse 93 93 Oximetry 01/02/18 01/02/18 01/02/18 10:06 11:42 12:15 Temperature 97.9 F Pulse Rate 88 Respiratory 18 16 18 Rate Blood Pressure 106/70 (mmHg) O2 Sat by Pulse 96 Oximetry 01/02/18 12:47 Temperature Pulse Rate Respiratory 18 Rate Blood Pressure (mmHg) O2 Sat by Pulse Oximetry Oxygen Devices in Use Now: None, CPAP Appearance: Aler and oriented, eating lunch, appears comfortable and in NAD. Eyes: No Scleral Icterus, PERRLA Ears/Nose/Mouth/Throat: Mucous Membranes Moist Neck: NL Appearance and Movements; NL JVP, Trachea Midline Respiratory: Symmetrical Chest Expansion and Respiratory Effort, Clear to Auscultation Cardiovascular: NL Sounds; No Murmurs; No JVD, RRR Abdominal: NL Sounds; No Tenderness; No Distention Extremities: No Edema, - - Left CHEPE wrap clean and dry. Neurological: Alert and Oriented x 3, NL Muscle Strength and Tone Nutrition: Taking PO's Result Diagrams: 01/02/18 07:48 01/01/18 06:57 Assess/Plan/Problems-Billing Assessment: Mr. Goodwin is a 67 yo male with a PMH of diabetes and htn who was admitted on 4/9/18 for a left patellofemoral joint arthroplasty. - Patient Problems (1) S/P left knee surgery Current Visit: Yes Comment: - Management per ortho. - Continuing adjusting pain meds, continue bowel regimen. - PT/OT. - Monitor H/H, hemodynamically stable. (2) Hyperlipidemia Current Visit: Yes Comment: - Continue atorvastatin. (3) Hypertension Current Visit: Yes Comment: - BP well controlled. - Not on meds outpatient. (4) Diabetes Current Visit: Yes Comment: - BGs well controlled. - Hold home meds and continue lispro SSI coverage with meals. (5) BPH (benign prostatic hyperplasia) Current Visit: Yes Comment: - Has history of urinary retention post op, Mckinley already removed this AM - Will reassess this afternoon. If no void next few hours, will check PVR with a bladder scan. - May need straight cath or Mckinley upon discharge - Recommend Urological consult if no resolution (6) Hypothyroid Current Visit: No Status: Acute Code(s): E03.9 - HYPOTHYROIDISM, UNSPECIFIED SNOMED Code(s): 89595824 Comment: - Stable. Continue Synthroid. TSH wnl 07/16/17. (7) DVT prophylaxis Current Visit: No Status: Acute Code(s): HPS0406 - SNOMED Code(s): 153815236 Comment: - warfarin with heparin sq per ortho (8) Full code status Current Visit: No Status: Acute Code(s): Z78.9 - OTHER SPECIFIED HEALTH STATUS SNOMED Code(s): 859694042 Comment: Status and Disposition: In-patient, disposition per ortho.
[2018-01-02] MEDS: Atorvastatin* 10 MG TAB PO SCH (17:00)
[2018-01-02] MEDS ORDERED: Warfarin TAB(*) 3 MG PO ONE (17:00)
[2018-01-02] MEDS: Gabapentin CAP(*) 400 MG PO SCH (21:49)
[2018-01-02] MEDS: traZODone TAB* 100 MG PO SCH (21:49)
[2018-01-03 05:26] LABS: Hematocrit 38 % (42-52); Hemoglobin 12.7 g/dl (14.0-18.0); Mean Platelet Volume 8.3 um3 (7.4-10.4); Platelet Count 162 10^3/ul (150-450)
[2018-01-03 05:36] LABS: INR 1.45 (0.77-1.02)
[2018-01-03] MEDS: Levothyroxine TAB* 50 MCG TAB PO SCH (06:06)
[2018-01-03] MEDS: oxyCODONE/Acetamin 5/325 MG* TAB PO PRN (06:07)
[2018-01-03] MEDS: Vitamin THERAPEUTIC TAB PO SCH (07:40)
[2018-01-03] MEDS: Clopidogrel TAB* 75 MG PO SCH (07:40)
[2018-01-03] MEDS: Tamsulosin CAP* 0.4 MG PO SCH (07:40)
[2018-01-03] MEDS: buPROPion SR TAB.SR* 150 MG PO SCH (07:40)
[2018-01-03] MEDS: Docusate CAP* 100 MG PO SCH (07:41)
[2018-01-03] MEDS: D3 PO SCH (07:41)
[2018-01-03] MEDS: BOR PO SCH (07:41)
[2018-01-03] MEDS: GALANTAMINE 16 MG PO SCH (07:41)
[2018-01-03] MEDS: COP PO SCH (07:41)
[2018-01-03] MEDS: MANG PO SCH (07:41)
[2018-01-03] MEDS: CAL PO SCH (07:41)
[2018-01-03] MEDS: Heparin VIAL(*) 5000 UNITS/ML VIAL (FIVE THOUSAND) SUBCUT SCH (07:41)
[2018-01-03] MEDS: lamoTRIgine TAB(*) 100 MG PO SCH (07:41)
[2018-01-03] MEDS: ZINC PO SCH (07:41)
[2018-01-03] MEDS: MAG11 PO SCH (07:41)
[2018-01-03] MEDS: Venlafaxine EXT RELEASE CAP* 75 MG PO SCH (07:41)
[2018-01-03] MEDS: Magnesium Hydroxide LIQ* 30 ML UDC PO SCH (07:41)
[2018-01-03] MEDS: Insulin LISPRO* 1 UNITS UNIT SUBCUT SCH (07:42)
--- NOTE | 2018-01-03 11:15 | PN ---
Progress Note - Progress Note Date of Service: 01/03/18 SOAP: Subjective: []Patient seen at bedside. His pain is well controlled today and desires DC. Denies CP, SOB, Dizziness or nausea. His cheng is in place and per Dr Leigh will remain in place until outpatient f/u Objective: [] Vital Signs Temp 99.0 F 01/03/18 07:29 Pulse 82 01/03/18 07:29 Resp 16 01/03/18 08:10 BP 149/72 01/03/18 07:29 Pulse Ox 94 01/03/18 07:29 Intake & Output 01/02/18 01/03/18 01/03/18 18:59 06:59 18:59 Intake Total 675 1240 120 Output Total 500 1025 Balance 175 215 120 Intake: Oral 675 1240 120 Output: Urine 50 Cheng 450 1025 Other: # Bowel Movements 0 Laboratory Last Values Hgb 12.7 g/dl (14.0-18.0) L 01/03/18 04:59 Hct 38 % (42-52) L 01/03/18 04:59 Plt Count 162 10^3/ul (150-450) 01/03/18 04:59 MPV 8.3 um3 (7.4-10.4) 01/03/18 04:59 INR (Anticoag Therapy) 1.45 (0.77-1.02) H 01/03/18 04:58 Sodium 139 mmol/L (139-145) 01/01/18 06:57 Potassium 3.9 mmol/L (3.5-5.0) 01/01/18 06:57 Chloride 109 mmol/L (101-111) 01/01/18 06:57 Carbon Dioxide 26 mmol/L (22-32) 01/01/18 06:57 Anion Gap 4 mmol/L (2-11) 01/01/18 06:57 BUN 11 mg/dL (6-24) 01/01/18 06:57 Creatinine 1.37 mg/dL (0.67-1.17) H 01/01/18 06:57 Est GFR ( Amer) 66.9 (>60) 01/01/18 06:57 Est GFR (Non-Af Amer) 52.0 (>60) 01/01/18 06:57 BUN/Creatinine Ratio 8.0 (8-20) 01/01/18 06:57 Glucose 100 mg/dL (70-100) 01/01/18 06:57 POC Glucose (mg/dL) 105 mg/dL (70-100) H 01/03/18 07:35 Calcium 8.3 mg/dL (8.6-10.3) L 01/01/18 06:57 General: Well appearing, NAD LLE: Dressing changed. Incision with well approximated wound edges, CDI without discharge and without erythema. Thigh soft. DF/PF intact. 2+ DP pulse. Sensation intact to light touch distally. BL LE: Calves supple and nontender without erythema, edema or palpable cords Assessment: []POD 3 sp left knee patellofemoral arthroplasty Urinary retention Plan: []WBAT PT/OT Lovenox, Coumadin 4 mg KAYLEE Willingham Swing today Cheng to remain in place until outpt f/u Dr Leigh
[2018-01-03 11:37] VITALS: BP 129/69
--- NOTE | 2018-01-03 12:22 | DS ---
DATE OF ADMISSION AND SURGERY: 12/31/2017. DATE OF DISCHARGE: 01/03/2018. ATTENDING PHYSICIAN: Dr. Otto Weiss* (dictated by BAUDILIO Vallejo). [facility]: BAUDILIO Vallejo. PREOPERATIVE DIAGNOSIS: Osteoarthritis of the left patellofemoral joint. OPERATIVE PROCEDURE: Left patellofemoral joint arthropathy. HISTORY: Mr. Goodwin is a 67-year-old male who has been having trouble with bilateral knee pain. On the left, he had very specific issues with his patellofemoral joint and had a hypoplastic set of condyles. There is also an element of instability as he could easily be pulled one side to the other. He had very specific crepitus and pain with compression. He failed conservative management and elected to undergo a left patellofemoral joint arthroplasty. HOSPITAL COURSE: Mr. Goodwin was admitted to [facility] on 2017. He underwent a left patellofemoral joint arthroplasty without complication. Post op day one, he was seen at the bedside. He is alert and oriented in no acute distress. Left knee inspection revealed the dressing is clean, dry, and intact. He was able to plantarflex and dorsiflex as well as lift the thigh off of the bed. He has full sensation to light touch distally. 2+ dorsalis pedis pulse is present. The patient was also seen by Medicine on postop day one. On post op day two, his dressing had been removed overnight. The patient was seen. His dressing was changed. Incision was well approximately. Wound edge was clean, dry, and intact without discharge and without erythema. Thigh was soft. Dorsiflexion and plantarflexion intact. 2+ dorsalis pedis pulse. The patient was again seen by Medicine due to a void of only 25 cc and suprapubic discomfort with 500 cc of residual urine. A Moran catheter was inserted and urologist Dr. Leigh recommends that the patient be discharged with catheter in place and to follow-up with him as an outpatient. On postop day three, the patient is seen at the bedside. Temperature is 99.0, pulse is 82, respiratory rate is 16, blood pressure 149/72, pulse ox is 94. Hemoglobin is 12.7, hematocrit 38; INR 1.45. Dressing was changed. It was clean, dry, and intact. He was deemed to be medically and orthopedically stable for discharge to [facility] today. DISCHARGE MEDICATIONS: He will resume his home medications which include: 1. Venlafaxine 150 mg p.o. b.i.d. 2. Simvastatin 20 mg p.o. daily. 3. Trazodone 150 mg p.o. at bedtime. 4. Levothyroxine 15 mcg p.o. q.a.m. 5. Glimepiride 4 mg p.o. q.a.m. 6. Galantamine ER 16 mg p.o. q.a.m. 7. Plavix 75 mg p.o. q.a.m. 8. Caltrate 600+D one tab p.o. q.a.m. 9. [place]-3 fatty acids 1,000 mg p.o. q.a.m. 10. Vitamin B12 2,000 mcg p.o. q.a.m. 11. Vitamin E capsule 400 units p.o. q.a.m. 12. Testosterone 200 mg IM monthly injection. 13. Flomax 0.4 mg p.o. q.a.m. 14. Ascorbic acid 1,000 mg p.o. q.a.m. 15. Bupropion SR 150 mg p.o. b.i.d. 16. Lamotrigine 100 mg p.o. q.a.m. 17. Percocet 7.5/325 was discontinued at home due to prescribing other pain medications. 18. Gabapentin 400 mg p.o. at bedtime. 19. Clonazepam 0.5 mg p.o. b.i.d. prn max daily dose of 1 mg. 20. Sitagliptin 100 mg p.o. q.a.m. 21. Multivitamin. 22. Glucosamine Chondroitin. New medications for home: 1. Acetaminophen 650 mg p.o. q.4 hours prn max daily dose of 4,000 mg from all sources. 2. Docusate 100 mg p.o. b.i.d. prn. 3. Percocet 5/325 one to two tabs every 4 to 6 hours as needed for pain, max daily dose of 10. 4. Warfarin 2 mg tabs, take 1 to 3 tablets daily depending on INR instructions. DISCHARGE INSTRUCTIONS: Weightbearing as tolerated. Continue physical therapy and occupational therapy exercises as shown. Nurse to remove el in 10 to 12 days and do wound checks. Nurses will draw blood for INR on Sunday's and 's. Coumadin dosing, you have been getting 2 mg tablets. Dosing instructions: Take 4 mg on 01/03/2018, take 2 mg daily between 01/04 and 2017, and then recheck INR on 01/07/2018. Pain control with Percocet on one to two tabs every 4 to 6 hours as needed for pain, max daily dose 10 tabs per day. Due to urinary retention moran catheter will remain in place at discharge. You will follow up with Dr Leigh, urology, outpatient for moran removal. Follow-up with Dr. Weiss within four weeks, sooner as needed. Call for an appointment. BAUDILIO NAVARRO [id number]/[facility] #: [id number] [facility]
[2018-01-03] MEDS ORDERED: Scopolamine PATCH Remove* 1 NOTE MISC PATCH OFF ONE (12:49)
== END 2018-01-03 12:30 | DRG 320 ==
LOC: AA 08:15 → SSU 17:31
PROVIDERS: ADMIT Orthopaedic Surgery; ATTEND Orthopaedic Surgery
PROC: 0SUU09Z Supplement Left Knee Joint, Femoral Surface with Liner, Open Approach (ICD-10-PCS; 2017-12-31)
PROC: 0SUD09C Supplement Left Knee Joint with Liner, Patellar Surface, Open Approach (ICD-10-PCS; 2017-12-31)
PROC: 0T9B70Z Drainage of Bladder with Drainage Device, Via Natural or Artificial Opening (ICD-10-PCS; principal; 2018-01-02)
DX: M17.12 Unilateral primary osteoarthritis, left knee (principal); Q74.2 Other congenital malformations of lower limb(s), including pelvic girdle; Z79.84 Long term (current) use of oral hypoglycemic drugs; Z79.02 Long term (current) use of antithrombotics/antiplatelets; Z79.01 Long term (current) use of anticoagulants; I10 Essential (primary) hypertension; E11.9 Type 2 diabetes mellitus without complications; Z86.73 Personal history of transient ischemic attack (TIA), and cerebral infarction without residual deficits; Z98.1 Arthrodesis status; N40.1 Benign prostatic hyperplasia with lower urinary tract symptoms; Z87.442 Personal history of urinary calculi; Z86.14 Personal history of Methicillin resistant Staphylococcus aureus infection; Z82.49 Family history of ischemic heart disease and other diseases of the circulatory system; Z82.3 Family history of stroke; Z83.1 Family history of other infectious and parasitic diseases; Z72.89 Other problems related to lifestyle; M50.10 Cervical disc disorder with radiculopathy, unspecified cervical region; G30.9 Alzheimer's disease, unspecified; F02.80 Dementia in other diseases classified elsewhere, unspecified severity, without behavioral disturbance, psychotic disturbance, mood disturbance, and anxiety; Z80.8 Family history of malignant neoplasm of other organs or systems; M96.1 Postlaminectomy syndrome, not elsewhere classified; E78.2 Mixed hyperlipidemia; E03.9 Hypothyroidism, unspecified; E29.1 Testicular hypofunction; R33.9 Retention of urine, unspecified; F41.8 Other specified anxiety disorders; F29 Unspecified psychosis not due to a substance or known physiological condition; N32.81 Overactive bladder; G47.33 Obstructive sleep apnea (adult) (pediatric); J44.9 Chronic obstructive pulmonary disease, unspecified; I27.20 Pulmonary hypertension, unspecified; I45.10 Unspecified right bundle-branch block; Z98.42 Cataract extraction status, left eye; Z98.41 Cataract extraction status, right eye; F17.200 Nicotine dependence, unspecified, uncomplicated
CPT/HCPCS: 36415; 80048; 85014; 85018; 85049; 85610; 88305; 88311; A9270-GY; C1713; C1776; G8978-GP-CJ; G8979-GP-CI; J0461; J0690; J1170; J1644; J1885; J2001; J2250; J2270; J2704; J2710; J3010

== ENCOUNTER 2018-04-03 02:16 | Inpatient (IN) | payer BC ==
[2018-04-03] MEDS ORDERED: Acetaminophen TAB* 325 MG PO PRN (05:03)
[2018-04-03] MEDS ORDERED: Ondansetron INJ* 2 MG/ML VIAL IV PRN (05:03)
[2018-04-03] MEDS ORDERED: Dextrose 50% Syringe 50 ML* 25 GM/50 ML SYRINGE IV PUSH PRN (05:03)
[2018-04-03 05:32] LABS: Corrected Retic Count 1.5 % (0.5-1.5); Hematocrit 24 % (42-52); Hematocrit for Retic CNT 24 % (42-52); Immature Retic Fraction 0.59; Mean Corpuscular HGB Conc 33 g/dl (31-36); Mean Corpuscular Hemoglobin 31 pg (27-31); Mean Corpuscular Volume 94 fL (80-94); Mean Platelet Volume 7.6 um3 (7.4-10.4); Platelet Count 251 10^3/ul (150-450); RBC Retic Count 2.55 10^6/ul (4.6-6.2); Red Blood Count 2.55 10^6/ul (4.00-5.40); Red Cell Distribution Width 14 % (10.5-15); White Blood Count 6.3 10^3/ul (3.5-10.8)
[2018-04-03 05:37] LABS: ABS Basophils 0 10^3/ul (0-0.2); ABS Eosinophils 0.1 10^3/ul (0-0.6); ABS Lymphocytes 1.5 10^3/ul (1.0-4.8); ABS Monocytes 0.6 10^3/ul (0-0.8); ABS Neutrophils 3.9 10^3/ul (1.5-7.7); ABS Nucleated RBC 0 10^3/ul; Eosinophil % 1.6 % (0-6); Nucleated Red Blood Cells % 0
[2018-04-03 05:51] LABS: EGFR Non-African American 55.7 (>60)
[2018-04-03] MEDS: Levothyroxine TAB* 50 MCG TAB PO SCH (06:02)
[2018-04-03] MEDS: oxyCODONE/Acetamin 5/325 MG* TAB PO PRN ×2 (06:04→13:03)
[2018-04-03] MEDS: cefTRIAXone(*) 1 GM in NS 0.9% 50 ML* 50 ML IVPB SCH (06:06)
--- NOTE | 2018-04-03 07:08 | PN ---
Progress Note - Progress Note Date of Service: 04/03/18 Note: Pt seen and examined. Full note to be dictated. R knee pain after repeated falls. History of previous Left patellofemoral arthroplasty by Dr Weiss. Pt with multiple unexplained falls. Currently admitted for neuro workup. States he does not attribute to his knees specifically but feels they cannot support him. Large swollen ecchymotic knee. Limited ROM. CT scan negative. Will order formal films of knee. Recommend aspiration. Pt nervous about it so will start with compression, ice, elevation. Will continue to follow with pt. Discussed with nursing staff.
--- NOTE | 2018-04-03 07:53 | RAD ---
INDICATION: Multiple falls. Now with right thigh and knee pain. COMPARISON: Knee radiograph July 16, 2017 TECHNIQUE: Noncontrast CT examination of the pelvis and right femur. Axial images were acquired and sagittal and coronal reformats were created and independently analyzed. FINDINGS: The bones of the pelvis are intact and appropriately aligned. There is no fracture of the pelvis or either hip. Mild degenerative changes of the hips include marginal osteophyte formation. The right femur is intact. There is no fracture of the right femur. There is infiltration of the subcutaneous tissue overlying the anterior and medial thigh. Overlying the medial aspect of the supracondylar region there is hyperattenuating subcutaneous material consistent with hematoma. There are several foci. Overlying the medial right femoral condyle there is a subcutaneous hematoma measuring 2.5 x 6.4 cm in the axial plane. This extends inferiorly communicating with smaller subcutaneous hematomas. Immediately medial to the patella there is a smaller hematoma measuring 2.3 x 4.3 cm in the axial plane. The suprapatellar joint space of the right knee there is a small hyperattenuating fluid collection consistent with hemarthrosis. A Mckinley catheter is in place. There are scattered rectosigmoid diverticula. IMPRESSION: 1. No fracture or dislocation involving the pelvis or right femur. 2. There is multifocal subcutaneous hematomas overlying the anteromedial distal right femur and knee as well as a small hyperattenuating fluid collection in the suprapatellar joint space consistent with small amount of hemarthrosis.
[2018-04-03] MEDS: Aspirin 81 mg CHEW TAB* 81 MG TAB.CHEW PO SCH (08:58)
[2018-04-03] MEDS: buPROPion SR TAB.SR* 150 MG PO SCH ×2 (08:58→20:46)
[2018-04-03] MEDS: Venlafaxine EXT RELEASE CAP* 75 MG PO SCH ×2 (08:58→20:46)
[2018-04-03] MEDS: Tamsulosin CAP* 0.4 MG PO SCH (08:58)
[2018-04-03] MEDS: Calcium/Vitamin D TAB 250/125* TAB PO SCH (08:59)
[2018-04-03] MEDS: OMEGA-3 FATTY ACIDS (NF) 1,000 MG CAP PO SCH (08:59)
[2018-04-03] MEDS: GALANTAMINE 16 MG PO SCH (08:59)
[2018-04-03] MEDS: Vitamin THERAPEUTIC TAB PO SCH (08:59)
[2018-04-03] MEDS ORDERED: Clopidogrel TAB* 75 MG PO SCH (09:00)
[2018-04-03] MEDS: lamoTRIgine TAB(*) 25 MG PO SCH (09:08)
[2018-04-03] MEDS: Cyanocobalamin TAB* 500 MCG PO SCH (09:08)
[2018-04-03] MEDS: Insulin LISPRO* 1 UNITS UNIT SUBCUT SCH ×3 (09:10→17:32)
--- NOTE | 2018-04-03 11:28 | HP ---
AMENDED REPORT NOW INCLUDES COSIGNER DESIGNATION - ESIGNED BEFORE ADJUSTMENTS CC: Dr. Cast; Dr. Killian, Dr. White * HISTORY AND PHYSICAL: DATE OF ADMISSION: 04/03/18 PRIMARY CARE PROVIDER: Dr. aCst, from [place]. CONSULTING NEUROLOGIST: Dr. Killian CONSULTING ORTHOPEDIST: Dr. White ATTENDING PHYSICIAN WHILE IN THE HOSPITAL: Ramon Bear MD * (report dictated by Abrahan Appiah NP) CHIEF COMPLAINT: Falls. HISTORY OF PRESENT ILLNESS: Mr. Goodwin is a 67-year-old male patient. He has a history of anxiety, TIA, diabetes, hyperlipidemia, LAMAR, hypertension, GERD , history of degenerative disk disease, and a history of cervical radiculopathy. He also has a longstanding history of an unsteady gait and falls. He has been seeing a neurologist for the last couple of years due to, according to the patient, trouble with his gait. Over the last 2 weeks, he has had progressive worsening, increasing frequency of falls, just today alone he fell 3 times. He says he has been having trouble with his gait. He denies any weakness. He says when he is up walking, he starts getting tremors and he shakes. He says he has noticed that when he goes over thresholds, he has to stop and take his time to go over them. He says he has been having more trouble with that. He says that he has not had any change in medications. He does admit to having a chronic Mckinley for BPH. There have been no fevers or chills. No vomiting or diarrhea. He has not had any similar trouble. No chest discomfort. No shortness of breath or any cough or URI type symptoms. He actually fell once the beginning in February, broke 4 ribs on his left side. He has fallen, he says, innumerable times in the last couple of weeks and again just 3 times today. No syncopal episodes associated with it. He was concerned and actually went to [facility] and actually one week ago was over at [facility] for epistaxis, required 2 units of blood. He says he has not had any more instances and since then he has been off his Plavix, which he takes for secondary prevention to TIAs. He was evaluated at [facility] because he was there this morning for a fall. He went home, fell again, called 911. Today 's fall he says he became tremulous and shaky, lost his balance and he fell down. He was evaluated there, there was no bed for admission. It was felt that he had been out of safe discharge plan. He was found to have UTI. We were asked to evaluate for admission. PAST MEDICAL HISTORY: Significant for: 1. Anxiety. 2. TIA. 3. Diabetes. 4. Hyperlipidemia. 5. LAMAR. 6. Hypertension. 7. GERD. 8. Cervical radiculopathy. 9. Degenerative disk disease. PAST SURGICAL HISTORY: He has had a: 1. Cholecystectomy. 2. C-spine infusion. 3. Lumbar laminectomy. 4. Hiatal hernia repair. 5. Partial left knee replacement. 6. Foot surgery. 7. Bunionectomy. 8. Knee arthroscopy on the left side. HOME MEDICATIONS: Includes: 1. Aspirin 81 mg daily. 2. Flomax 0.4 mg daily. 3. Effexor 150 mg p.o. b.i.d. 4. Clonazepam 0.5 mg p.o. b.i.d. as needed. 5. Januvia 100 mg p.o. daily. 6. Percocet 1 tablet every 6 hours as needed. 7. Simvastatin 20 mg daily. 8. Levothyroxine 15 mcg daily. 9. Glimepiride 4 mg daily. 10. Galantamine 16 mg daily. 11. Trazodone 150 mg at bedtime. 12. Lamictal 100 mg p.o. daily. 13. Wellbutrin 150 mg p.o. daily. 14. Neurontin 400 mg p.o. daily. 15. Fish oil 1 capsule daily. 16. Vitamin D 1000 units p.o. daily. 17. Vitamin E 400 units daily. 18. Calcium with vitamin D 1 tablet daily. 19. Multivitamin 1 tablet daily. 20. Glucosamine/chondroitin 1 tablet daily. 21. B12 2000 mcg p.o. daily. 22. Vitamin C 1000 mg p.o. daily. ALLERGIES TO MEDICATIONS: Include OXYBUTYNIN, MIRABEGRON, FESOTERODINE. FAMILY HISTORY: He said his mother of old age. Father had a history of COPD. SOCIAL HISTORY: He does live alone. He does not smoke. He does not drink. Surrogate decision maker is his stepchildren. REVIEW OF SYSTEMS: There is no documented fever. He denies having any significant weight change. There is no double vision. He denies having any ear discharge. There is no rhinorrhea. No sore throat. No thyroid enlargement. Denies having any chest pain. There is no orthopnea. There is no nocturnal dyspnea. He denies having any abdominal pain. There is no nausea. No vomiting. There is no dysuria. Denied any frequency. No seizure. No loss of consciousness. No pruritus. No skin ulcerations. Review of 14 systems was completed and all others negative. PHYSICAL EXAMINATION GENERAL: At this time, Mr. Goodwin is a 67-year-old male patient. He is sitting in the hospital bed. He does not appear to be in any acute distress. VITAL SIGNS: Blood pressure 128/72, pulse 91, respirations 18, O2 sats 100% on 2 L, temperature 98.7. HEENT: Head: Atraumatic, normocephalic. Eyes: EOMs are intact. Sclerae anicteric, not pale. Throat: Oral mucosa appears to be moist. No oropharyngeal erythema. NECK: Supple. LUNGS: Clear to auscultation bilaterally. No wheezes, rales, or rhonchi. HEART: Sounds S1, S2. Regular rate and rhythm. No murmurs, rubs, or gallops. ABDOMEN: Soft, it was flat, nontender. Bowel sounds are present. EXTREMITIES: He is moving upper extremities with 5/5 strength. Lower extremities, he has plantar and dorsiflexion with 5/5 strength. He has the flexion at the knee and extension at the knee bilaterally 5/5 strength. He has limited range of motion to his right knee as he has a significant amount of ecchymosis and swelling and pain along the medial aspect of his right knee. He says he did land on this knee today. Pulses were 2+ throughout. No peripheral edema. There is a significant effusion on the right knee. NEUROLOGICAL: He is awake, alert, oriented x3. His speech is clear. Tongue is midline. Property Claim Rep are equal. He had [id number] intact bilaterally. No gross focal deficits. I did not ambulate him because of the severity of the injury to his right knee. SKIN: His skin was intact. Again, he has multiple areas of ecchymosis near the right flank, near the right knee and along the right biceps area from falls. DIAGNOSTIC STUDIES/LAB DATA: An imaging showed today, EKG shows sinus tachycardia, rate of 100. He had no ST elevations or T-wave inversions noted. He had labs at [place], WBC of 8.2, RBC at 2.78, hemoglobin 8.6, hematocrit 26. His H and H does appear to be down from December of this year at 12.7, we will need to monitor and his platelet count was 292, INR was 0.92. He had a PTT at 21.4. Urine showed 1+ glucose, pH is 6, positive nitrite, 1+ leukocyte esterase, 3 to 5 rbc's, wbc's were too numerous to count. Glucose today was 239 , BUN 35, creatinine 1.9. His baseline appears to be right around 1.3. Sodium 133, potassium 3.9, chloride of 98, bicarb was 22, mag 1.9, calcium 8.1, total bili is 0.9, AST 20, ALT 29, CK was 63, alk phos 137, these are again [place] [facility]. BNP was 9, troponin 0.007. TSH is 7.4, CK 3. He did have a CT brain at [place], no acute intracranial abnormalities are seen. He did have atrophy and an old left cerebellar infarct similar to prior study. He had an x-ray of the knee, which showed minor degenerative change and swelling. He had chest x-ray, which showed no change in left rib fractures compared to prior study, possible small left effusion. Old medical records were reviewed. ASSESSMENT AND PLAN: Mr. Goodwin is a 67-year-old male patient coming into our hospital today as a direct admit from [facility] for complaints of fall. He will be admitted under inpatient status for: 1. Falls: Etiology is unclear. I am concerned that there might be an underlying neurological condition contributing to the falls and his gait disturbances such as Parkinson's, although it is difficult to test his gait at this point because of the significant injury to his knee. I would like to touch base with Neurology and have them weigh in and evaluate the patient later today to see if they have any recommendations. I am checking a B12. I will repeat his TSH. I am going to get the records from Dr. Spann's office, his outpatient neurologist to see what workups have already been done. If the knee is stable and there is not any fracture after imaging exam, I am going to get a CT, then I would certainly get Physical Therapy involved, but before doing so, the patient is on bed rest until I can firmly rule out that there is not any fractures or any pathology where the patient would be nonweightbearing and we will get Orthopedics involved. 2. Right knee injury. Again, I suspect he may have an MCL tear or strain possibly or fractures, so I am getting a CT of the lower extremity in the pelvis. We will have Dr. White evaluate. For the time being I am applying ice. He is on bed rest until orthopedic evaluates at this point. 3. Anxiety. Continue supportive care. 4. History of TIA. He is on aspirin, continue with meds as prescribed. 5. Anemia. Sending off iron studies and B12 studies and getting a stool guaiac , repeating his H and H now, that was an H and H from 10 o'clock tonight to monitor. 6. Diabetes. We will put him on a lispro sliding scale. 7. Hyperlipidemia, continue statin therapy. 8. Obstructive sleep apnea. He does wear a BiPAP and that I have ordered. 9. Hypertension. Continue meds as prescribed. 10. Gastroesophageal reflux disease. Continue meds as prescribed. 11. Degenerative disk disease with history of cervical radiculopathy. Continue with p.r.n. pain medications. 12. DVT prophylaxis: He is high risk, we will place him on heparin subcu. 13. Code status: Full code. 14. Fluids, electrolytes, and nutrition: He can have a consistent carb diet. 15. Urinary tract infection. I will place him on Rocephin. TIME SPENT: Time spent on the admission was 70 minutes, greater than half the time spent [id number] with the patient obtaining my history and physical; other half of the time spent going over my plan of care with the patient and implementing the plan of care. I did discuss the plan of care with my attending , Dr. Bear, he is in agreement. ABRAHAN APPIAH, ARLEN [id number]/[facility] #: [id number] ANAND
--- NOTE | 2018-04-03 14:13 | CONS ---
CONSULTATION REPORT: DATE OF CONSULT: 04/03/18 PATIENT OF: Dr. Edgar De Leon, neurologist in [place], [place] and Dr. Duncan. HISTORY OF PRESENT ILLNESS: This is a 67-year-old man that I am asked to evaluate for frequent falls. His history is longstanding and goes back several years and has had a longstanding peripheral neuropathy. He has also fallen a number of times. It is unclear whether in some of these falls element of syncope. Clearly some of it he is just falling. He was recently hospitalized here in December 2007 following a fall where he had subsequent knee pain and had an orthopedic procedure on his knee. He notes that in the past six weeks' time, he has had much more frequent falls and has fallen many days out of the week. He apparently does not lose consciousness with his falls, but just loses his balance and falls. He was seen by Dr. De Leon few weeks ago in his office. I spoke to Dr. De Leon on the phone, but I do not have the outside records at this point. Dr. De Leon notes that he has felt he had evidence of peripheral neuropathy thought secondary to be due to his diabetes. He also had a right cerebellar stroke in the past and this is further reason why Dr. De Leon thought he was falling. He [facility] last evening and was transferred here for further orthopedic treatment and further evaluation. PAST MEDICAL HISTORY: He has a history of hypertension, type 2 diabetes, chronic depression, history of TIAs, right cerebellar stroke, sinus infections, hyperlipidemia, postlaminectomy syndrome, cervical fusion, cervical radiculopathy, degenerative disk disease, cellulitis of his foot 20 years ago, benign prostatic hypertrophy, lumbar disk disease. He has had neck surgery in 2013, bunionectomy in 2013. Kidney stone extraction in 2016. MRSA infections of his left elbow. Left knee arthroscopy. Left hand carpal tunnel syndrome. Status post fusion L5. CURRENT MEDICATIONS: Include at home, 1. Aspirin 81 mg daily. 2. Flomax 0.4 daily. 3. Effexor 150 b.i.d. 4. Clonazepam 0.5 b.i.d. p.r.n. 5. Januvia 100 mg q.a.m. 6. Oxycodone 1 tab p.r.n. 7. Simvastatin 20 mg daily. 8. Synthroid 50 mcg q.a.m. 9. Glimepiride 4 mg q.a.m. 10. Galantamine 16 mg q.a.m. 11. Trazodone 150 at bedtime. 12. Lamotrigine 100 mg q.a.m. 13. Wellbutrin 150 b.i.d. 14. Gabapentin 400 at bedtime. 15. Glucosamine 1 cap q.a.m. 16. B12 tablets 2000 mcg q.a.m. 17. Ascorbic acid 1000 q.a.m. ALLERGIES: Include FESOTERODINE, MIRABEGRON, OXYBUTYNIN. FAMILY HISTORY: Mother of heart disease, father of stroke and sepsis. SOCIAL HISTORY: He does not smoke. He lives alone. He drinks minimally. REVIEW OF SYSTEMS: He has no headache, no clear numbness or weakness. He does feel off balance and he feels this has slowly worsened. PHYSICAL EXAM: On exam, temperature 98.6, pulse 92, respirations 16, blood pressure 117/61. He is alert and oriented with normal speech and comprehension. Cranial nerves II through XII are intact. Fundi showed sharp disc. Motor exam revealed normal tone and strength 5/5 in arms and legs other than 4-/5 strength in intrinsic muscles of the left hand and he has atrophy in intrinsic hand muscles. Otzcoy-va-vgoc was intact. He had bilateral intention tremor. He had an unsteady gait and unsteady Romberg, which was only tested briefly because I was concerned if he fell he might injure his knee further, he did look unsteady. Sensation is decreased in glove and stocking distribution to touch. Position sense was minimally decreased in his feet. Reflexes were 3 in the left knee, right knee was not tested. Ankle jerks were trace to 1. Toes were equivocal to down-going. Reflexes in arms were 2 with a positive snout. Chest: Clear. Cardiovascular: Regular rate and rhythm. Abdomen: Soft with positive bowel sounds. DIAGNOSTIC STUDIES/LAB DATA: He had a white count of 6.3, hematocrit of 24, platelets of 251. Retic of 2.9. Chemistries here included a BUN of 26, creatinine of 1.29, glucose of 109 and another check was 151, calcium was 8.4, mag of 25, B12 of 662, folic acid greater than 20, TSH 7.75. His CT scan was done at the outside, I do not have the CT loaded into the system. However, Dr. Abrahan Appiah had sent it down to be downloaded. Apparently, it showed a right cerebellar stroke that was old and according Dr. De Leon, it has been present for sometime. Of note, the patient has also had EEGs mostly with Dr. De Leon and one read by me in June of 2017 that showed no clear tendency towards seizures. It is unclear the reason why he is on Lamictal, the patient has no idea. ASSESSMENT AND PLAN: I discussed this with the patient that he could have several reasons for his increased falling, which has worsened over the past six weeks. He could have further cerebellar stroke or more diffuse white matter disease and we will check an MRI scan for that. It is possible that some of his symptoms could be leg weakness from cervical cord disease. He has brisk reflexes, but that extends in to his arms, I am not sure that it is his cord, but he has a clear atrophy in his left hand muscles and with his past history of cervical disk disease, it would make sense to make sure he does not have some degree of myelopathy contributing to these symptoms. We will get a cervical MRI scan. It is possible that his neuropathy has worsened and we will be checking an EMG nerve conduction study to evaluate further for this. We sent off B12 and folate, which were normal. He is hypothyroid and this may be exacerbating despite treatment with Synthroid. This may need to be adjusted and improving his thyroid status may help his symptoms. He will also need physical therapy during this hospitalization. Thank you for sharing his case. [id number]/[facility] #: [id number] ANAND
--- NOTE | 2018-04-03 16:37 | RAD ---
INDICATION: Falls. Headaches. Seizures. History of left cerebellar infarct. Unsteady gait. COMPARISON: External CT brain April 02, 2018 TECHNIQUE: sagittal T1 FLAIR, axial diffusion, axial T1 FLAIR, axial T2, axial T2 FLAIR, and SWI images were acquired. FINDINGS: Craniocervical junction: The craniocervical junction appears normal. Ventricles/sulci: There is advanced cortical atrophy with compensatory dilatation of the CSF spaces. Brain parenchyma: There are no acute appearing focal parenchymal abnormalities. There is encephalomalacia with fine loss in the left cerebellar hemisphere consistent with a remote infarct. There are scant periventricular and subcortical T2-weighted hyperintensities consistent with the sequela of prior ischemia. There is no evidence of intracranial mass or mass effect. The diffusion weighted images show no evidence of acute ischemia. Intracranial hemorrhage: There is no intracranial hemorrhage. Extra-axial spaces: There are no extra-axial fluid collections or masses. Orbits: There are no MR abnormalities of the orbital structures. Paranasal sinuses/mastoid: The paranasal sinuses are clear. The mastoid air cells are well aerated.. Vascular: No abnormalities are seen. Other: None IMPRESSION: MODERATE CORTICAL ATROPHY. OLD LEFT CEREBELLAR INFARCT. MILD CHRONIC MICROVASCULAR ISCHEMIC CHANGES. NO ACUTE INTRACRANIAL FINDINGS.
--- NOTE | 2018-04-03 17:01 | RAD ---
INDICATION: Right knee pain COMPARISON: None TECHNIQUE: AP supine and crosstable lateral views were obtained. FINDINGS: There is no acute bony change. There are mild demonstrate changes with with prepatellar edema. There is also a joint effusion there may be an old patellar fracture. IMPRESSION: SOFT TISSUE EDEMA. SMALL JOINT EFFUSION. NO ACUTE BONY CHANGE.
[2018-04-03] MEDS: Atorvastatin* 10 MG TAB PO SCH (17:32)
--- NOTE | 2018-04-03 17:37 | PN ---
Subjective Date of Service: 04/03/18 Interval History: knee pain controlled. He is concerned as to the reason he has been falling otherwise has no other complaints Objective Active Medications: Acetaminophen (Tylenol Tab*) 650 mg PO Q4H PRN PRN Reason: FEVER/PAIN Aspirin (Aspirin 81 Mg Chew Tab*) 81 mg PO DAILY [facility] Last Admin: 04/03/18 08:58 Dose: 81 mg Atorvastatin Calcium (Lipitor*) 10 mg PO 1700 [facility] Bupropion HCl (Wellbutrin Sr Tab*) 150 mg PO BID [facility] Last Admin: 04/03/18 08:58 Dose: 150 mg Calcium/Vitamin D (Oscal D Tab 250/125*) 1 tab PO DAILY [facility] Last Admin: 04/03/18 08:59 Dose: 1 tab Clonazepam (Klonopin Tab(*)) 0.5 mg PO BID PRN PRN Reason: ANXIETY Cyanocobalamin (Vitamin B12 Tab*) [facility] Last Admin: 04/03/18 09:08 Dose: 2,000 mcg Dextrose (D50w Syringe 50 Ml*) 12.5 gm IV PUSH .FOR FS < 60 - SS PRN PRN Reason: FS < 60 Fish Oil (Fish Oil (Nf)) 1,000 [facility]; Protocol Last Admin: 04/03/18 08:59 Dose: Not Given Gabapentin (Neurontin Cap(*)) 400 mg PO BEDTIME [facility] Galantamine Hydrobromide (Galantamine Er (Nf)) [facility] Last Admin: 04/03/18 08:59 Dose: Not Given Ceftriaxone Sodium 1 gm/ (Sodium Chloride) 50 mls @ 200 mls/hr IVPB Q24H [facility] Last Admin: 04/03/18 06:06 Dose: 200 mls/hr Insulin Human Lispro (Humalog*) 0 units SUBCUT [facility]; Protocol Last Admin: 04/03/18 13:03 Dose: 2 units Lamotrigine (Lamictal Tab(*)) 100 mg PO QAM [facility] Last Admin: 04/03/18 09:08 Dose: 100 mg Levothyroxine Sodium (Synthroid Tab*) 50 mcg PO 0600 [facility] Last Admin: 04/03/18 06:02 Dose: 50 mcg Multivitamins (Theragran Tab*) 1 tab PO QAM [facility] Last Admin: 04/03/18 08:59 Dose: 1 tab Ondansetron HCl (Zofran Inj*) 4 mg IV Q6H PRN PRN Reason: NAUSEA Oxycodone/Acetaminophen (Percocet 5/325 Tab*) 1 tab PO Q4H PRN PRN Reason: PAIN Last Admin: 04/03/18 13:03 Dose: 1 tab Tamsulosin HCl (Flomax Cap*) 0.4 mg PO DAILY [facility] Last Admin: 04/03/18 08:58 Dose: 0.4 mg Trazodone HCl (Desyrel Tab*) 150 mg PO BEDTIME [facility] Venlafaxine HCl (Effexor Xr Cap*) 150 mg PO BID [facility] Last Admin: 04/03/18 08:58 Dose: 150 mg Vital Signs - 8 hr 04/03/18 04/03/18 04/03/18 09:35 11:17 13:03 Temperature 98.7 F Pulse Rate 95 Respiratory 18 18 18 Rate Blood Pressure 138/67 (mmHg) O2 Sat by Pulse 91 95 Oximetry 04/03/18 04/03/18 15:28 15:37 Temperature 98.4 F Pulse Rate 90 Respiratory 14 18 Rate Blood Pressure 132/65 (mmHg) O2 Sat by Pulse 97 Oximetry Oxygen Devices in Use Now: Nasal Cannula Appearance: lying flat, NAD Eyes: No Scleral Icterus, PERRLA Ears/Nose/Mouth/Throat: NL Teeth, Lips, Gums, Clear Oropharnyx, Mucous Membranes Moist Neck: NL Appearance and Movements; NL JVP, Trachea Midline, No Thyroid Enlargement, Masses Respiratory: Symmetrical Chest Expansion and Respiratory Effort, Clear to Auscultation Cardiovascular: NL Sounds; No Murmurs; No JVD, RRR Abdominal: NL Sounds; No Tenderness; No Distention, No Hepatosplenomegaly Lymphatic: No Cervical Adenopathy Extremities: - - right knee wrapped in CHEPE s/p joint aspiration Neurological: Alert and Oriented x 3, NL Muscle Strength and Tone Result Diagrams: 04/03/18 05:23 04/03/18 05:23 Assess/Plan/Problems-Billing Assessment: 67 yo M h/o TIAs and cerebellar CVA, LAMAR, HTN, DM2, cervical radiculopathy p/w recurrent falls - Patient Problems (1) Recurrent falls Comment: MRI brain with old cerebellar infarct. While this could account for falls it cannot explain increasing tempo of falls that pt describes over previous month Appreciate neurology assistance - cervical MRI and EMG pending TSH elevated - check free T3/T4 B12/folate wnl possible medication effect? - clonazepam, narcotics, flomax, lamictal and others (2) Right knee injury Comment: appreciate ortho assistance aspiration today with minimal fluid imaging without obvious fracture ice and elevate (3) History of epistaxis Comment: stable monitor (4) Urinary retention Comment: chronic moran with failed removal yesterday flomax (5) Urinary tract infection Comment: abnormal urinalysis at [place] but noted to be with a moran catheter maintain CTX moran was to be removed yesterday but failed trial void (6) DVT prophylaxis Comment: HSQ
[2018-04-03 18:04] LABS: Urine Appearance Cloudy; Urine Blood Negative (Negative); Urine Color Yellow; Urine Ketones Negative (Negative); Urine Protein Negative (Negative); Urine Red Blood Cell 3+(>10/hpf) (Absent); Urine Specific Gravity 1.021 (1.010-1.030); Urine Urobilinogen Negative (Negative); Urine White Blood Cell 3+(>20/hpf) (Absent)
[2018-04-03] MEDS: traZODone TAB* 100 MG PO SCH (20:46)
[2018-04-03] MEDS: Gabapentin CAP(*) 400 MG PO SCH (20:46)
[2018-04-03] MEDS: Heparin VIAL(*) 5000 UNITS/ML VIAL (FIVE THOUSAND) SUBCUT SCH (20:47)
--- NOTE | 2018-04-03 22:24 | CONS ---
CC: PCP, Chele Cast MD * CONSULTATION REPORT: DATE OF CONSULTATION: 04/03/18 HISTORY OF PRESENT ILLNESS: Briefly, Mr. Goodwin is a 67-year-old male, who presented to the hospital after frequent falls, 3 of them today and many over the last few weeks. He has a previous history of a left knee patellofemoral replacement done by Dr. Weiss, which he states he did well. He has had right knee pain off and on, but he does have a lot of right knee pain and bruising with swelling. He states he has difficulty with range of motion of the knee. He denies numbness or tingling. No fevers or chills. But he has had many frequent falls over the last few weeks. He just loses his balance. He has a previous history of right cerebellar stroke in the past and has difficulty with balance and proprioception. PAST MEDICAL HISTORY: Significant for hypertension, type 2 diabetes, chronic depression, history of TIAs, right cerebellar stroke, sinus infections, hyperlipidemia, post laminectomy syndrome, cervical fusion, cervical radiculopathy, DJD, cellulitis of the foot 20 years ago, benign prostatic hypertrophy, lumbar disk disease. PAST SURGICAL HISTORY: Significant for neck surgery in 2014, bunionectomy in 2014, kidney stone in 2016, MRSA infections of left elbow, left knee arthroscopy , left hand carpal tunnel syndrome, status post fusion of L5 as well as patellofemoral replacement on 12/31/17. MEDICATIONS: Current medications include: 1. Tylenol. 2. Aspirin. 3. Atorvastatin. 4. Bupropion. 5. Calcium. 6. Vitamin D. 7. Ceftriaxone. 8. Clonazepam. 9. Vitamin B12. 10. Fish oil. 11. Gabapentin. 12. Galantamine. 13. Insulin. 14. Lamotrigine. 15. Multivitamins. 16. Zofran. 17. Percocet. 18. Trazodone. 19. Tamsulosin. 20. Venlafaxine. ALLERGIES: FESOTERODINE, MIRABEGRON, OXYBUTYNIN. FAMILY HISTORY: Heart disease, stroke and sepsis. SOCIAL HISTORY: He does not smoke. He lives alone. He does not drink much. He is a community ambulator. REVIEW OF SYSTEMS: A 14-point review of systems was reviewed with the patient, significant for recent surgery on the left knee, right knee pain, right knee swelling, difficulty with balance, frequent falls. No numbness or tingling. No fever or chills. No shortness of breath, chest pain. Otherwise, remainder of the systems is negative. PHYSICAL EXAM: He is in no acute distress. He is well developed, well nourished. He is alert and oriented x3. He has pleasant mood and normal affect. Good balance and coordination of the upper extremities. Temperature 98.7, pulse is 95, respiratory rate 18, O2 is 95 on room air, blood pressure 138 /67. Examination of the right knee demonstrates skin is intact. There is abundant ecchymosis with a large effusion at the knee. He is tender laterally and diffusely about the knee. He has pain with range of motion, can flex from about 10 to about 40 degrees. His calf is soft, nontender. Sensate to light touch grossly distally with brisk cap refill. Examination of the left knee demonstrates skin is intact. There is no erythema or warmth, well-healed incision. There is no effusion. He has full range of motion of the left knee. He is sensate to light touch grossly distally with brisk cap refill. DIAGNOSTIC STUDIES/LAB DATA: CT scan of the left leg, femur demonstrates no obvious fracture or dislocation. Pelvis CT was also performed, which demonstrates no fracture or dislocation. He has subcutaneous hematomas over the distal right femur and a small hemarthrosis. There are no dedicated knee films. ASSESSMENT AND PLAN: He has a right knee effusion with large amount of ecchymosis. I am not sure exactly what happened to him. The CT scan, it was very helpful. At this point, I would recommend aspiration which she is agreeable to. The right leg was prepped and draped in usual sterile fashion; 5 cc of 1% lidocaine were injected into superolateral portal for analgesia and then a 18- gauge needle was used to try to withdraw fluid. The patient had a lot of pain, and was tender throughout and therefore I was unable to tap him. Sterile dressings were applied. A compressive Reji wrap was applied as well as ice packs. At this point, I am going to order dedicated knee films and we will continue to follow him otherwise we will have followup with Dr. Weiss on an outpatient basis. [id number]/[facility] #: [id number] [facility] HOSPITALSohan
[2018-04-04] MEDS: cefTRIAXone(*) 1 GM in NS 0.9% 50 ML* 50 ML IVPB SCH (05:43)
[2018-04-04] MEDS: Levothyroxine TAB* 50 MCG TAB PO SCH (05:47)
[2018-04-04] MEDS: Heparin VIAL(*) 5000 UNITS/ML VIAL (FIVE THOUSAND) SUBCUT SCH ×3 (05:47→21:19)
[2018-04-04 06:07] LABS: ABS Basophils 0.1 10^3/ul (0-0.2); ABS Eosinophils 0.1 10^3/ul (0-0.6); ABS Lymphocytes 1.2 10^3/ul (1.0-4.8); ABS Monocytes 0.6 10^3/ul (0-0.8); ABS Neutrophils 3.8 10^3/ul (1.5-7.7); ABS Nucleated RBC 0 10^3/ul; Eosinophil % 2.5 % (0-6); Hematocrit 25 % (42-52); Hemoglobin 8.2 g/dl (14.0-18.0); Lymphocyte % 21.3 % (25-47); Mean Corpuscular HGB Conc 33 g/dl (31-36); Mean Corpuscular Hemoglobin 31 pg (27-31); Mean Corpuscular Volume 94 fL (80-94); Mean Platelet Volume 7.9 um3 (7.4-10.4); Nucleated Red Blood Cells % 0; Platelet Count 238 10^3/ul (150-450); Red Blood Count 2.64 10^6/ul (4.00-5.40); Red Cell Distribution Width 15 % (10.5-15); White Blood Count 5.8 10^3/ul (3.5-10.8)
[2018-04-04 06:25] LABS: EGFR Non-African American 64.3 (>60)
--- NOTE | 2018-04-04 07:41 | RAD ---
HISTORY: gait problems, falls COMPARISONS: None relevant available at the time of dictation TECHNIQUE: The following sequences were obtained of the cervical spine: Sagittal T1- and T2-weighted images, sagittal STIR images, axial T2 and gradient echo images. FINDINGS: The study is limited by patient motion artifact. BRAIN AND SPINAL CORD: The visualized spinal cord is normal in caliber, position, and signal intensity. The visualized portion of the brain is unremarkable. The cerebellar tonsils are normal in position. ALIGNMENT: There is straightening of the normal cervical lordosis. The alignment is otherwise normal. VERTEBRAL BODIES: The patient is status post anterior cervical fusion at C4, C5, C6, and C7. JOINTS: There is diffuse uncovertebral and facet osteoarthritis. MUSCULATURE: Unremarkable INTERVERTEBRAL DISCS: There is diffuse loss of intervertebral disc height and T2 signal throughout the spine. AXIAL IMAGES: C2-C3: There is moderate right neural foraminal narrowing. There is no significant central canal stenosis. C3-C4: There is bilateral uncovertebral and facet hypertrophy. There is severe right and moderate left neural foraminal narrowing. There is mild narrowing of the central canal. C4-C5: Evaluation is limited by motion artifact. C5-C6: Evaluation is limited by motion artifact. C6-C7: Evaluation is limited by motion artifact. C7-T1: There is a broad-based disc osteophyte complex that is eccentric to the left. There is severe left and moderate right neuroforaminal narrowing. There is limited evaluation of the central canal. SOFT TISSUES: The visualized soft tissues of the neck are unremarkable. OTHER: None. IMPRESSION: 1. MARKEDLY LIMITED STUDY SECONDARY TO PATIENT MOTION ARTIFACT. 2. STATUS POST ANTERIOR CERVICAL FUSION. 3. DEGENERATIVE DISC DISEASE AND OSTEOARTHRITIS, DESCRIBED ABOVE.
[2018-04-04] MEDS: lamoTRIgine TAB(*) 25 MG PO SCH (08:34)
[2018-04-04] MEDS: Venlafaxine EXT RELEASE CAP* 75 MG PO SCH ×2 (08:34→21:05)
[2018-04-04] MEDS: Tamsulosin CAP* 0.4 MG PO SCH (08:34)
[2018-04-04] MEDS: Vitamin THERAPEUTIC TAB PO SCH (08:34)
[2018-04-04] MEDS: Aspirin 81 mg CHEW TAB* 81 MG TAB.CHEW PO SCH (08:34)
[2018-04-04] MEDS: buPROPion SR TAB.SR* 150 MG PO SCH ×2 (08:34→21:06)
[2018-04-04] MEDS: Calcium/Vitamin D TAB 250/125* TAB PO SCH (08:34)
[2018-04-04] MEDS: Cyanocobalamin TAB* 500 MCG PO SCH (08:34)
[2018-04-04] MEDS: Insulin LISPRO* 1 UNITS UNIT SUBCUT SCH ×3 (08:36→17:21)
[2018-04-04] MEDS: GALANTAMINE 16 MG PO SCH (08:36)
[2018-04-04] MEDS: OMEGA-3 FATTY ACIDS (NF) 1,000 MG CAP PO SCH (08:36)
[2018-04-04] MEDS: oxyCODONE/Acetamin 5/325 MG* TAB PO PRN ×2 (09:27→18:35)
--- NOTE | 2018-04-04 09:47 | PN ---
Progress Note - Progress Note Date of Service: 04/04/18 SOAP: Subjective: []Patient seen at bedside. He is comfortable with tolerable pain of his right knee. Objective: [] General: Well appearing, NAD RLE: Intact skin, no warmth or erythema. +moderate effusion with ecchymosis. Tender diffusely about knee. Passive ROM 10-110 degrees. BL calves supple and nontender without erythema or edema. Assessment: []Fall on to right knee Frequent falls at home Plan: [] Patient did not tolerate aspiration By Dr White well yesterday. Recommend continuing a compressive saul wrap and ice, follow up with Dr Weiss outpatient
--- NOTE | 2018-04-04 15:54 | PN ---
Subjective Date of Service: 04/04/18 Interval History: Walked with PT down [place] with walker. Did not feel weak. [place] improved. Concerned because he cannot predict when he will fall Knee and neck are "achy" Objective Active Medications: Acetaminophen (Tylenol Tab*) 650 mg PO Q4H PRN PRN Reason: FEVER/PAIN Aspirin (Aspirin 81 Mg Chew Tab*) 81 mg PO DAILY [facility] Last Admin: 04/04/18 08:34 Dose: 81 mg Atorvastatin Calcium (Lipitor*) 10 mg PO 1700 [facility] Last Admin: 04/03/18 17:32 Dose: 10 mg Bupropion HCl (Wellbutrin Sr Tab*) 150 mg PO BID [facility] Last Admin: 04/04/18 08:34 Dose: 150 mg Calcium/Vitamin D (Oscal D Tab 250/125*) 1 tab PO DAILY [facility] Last Admin: 04/04/18 08:34 Dose: 1 tab Clonazepam (Klonopin Tab(*)) 0.5 mg PO BID PRN PRN Reason: ANXIETY Cyanocobalamin (Vitamin B12 Tab*) 2,000 mcg PO QAM [facility] Last Admin: 04/04/18 08:34 Dose: 2,000 mcg Dextrose (D50w Syringe 50 Ml*) 12.5 gm IV PUSH .FOR FS < 60 - SS PRN PRN Reason: FS < 60 Fish Oil (Fish Oil (Nf)) 1,000 mg PO QAM [facility]; Protocol Last Admin: 04/04/18 08:36 Dose: Not Given Gabapentin (Neurontin Cap(*)) 400 mg PO BEDTIME [facility] Last Admin: 04/03/18 20:46 Dose: 400 mg Galantamine Hydrobromide (Galantamine Er (Nf)) 16 mg PO QAM [facility] Last Admin: 04/04/18 08:36 Dose: Not Given Heparin Sodium (Porcine) (Heparin Vial(*)) 5,000 units SUBCUT Q8HR [facility] Last Admin: 04/04/18 12:43 Dose: 5,000 units Ceftriaxone Sodium 1 gm/ (Sodium Chloride) 50 mls @ 200 mls/hr IVPB Q24H [facility] Last Admin: 04/04/18 05:43 Dose: 200 mls/hr Insulin Human Lispro (Humalog*) 0 units SUBCUT AC [facility]; Protocol Last Admin: 04/04/18 12:43 Dose: 4 units Lamotrigine (Lamictal Tab(*)) 100 mg PO QAM [facility] Last Admin: 04/04/18 08:34 Dose: 100 mg Levothyroxine Sodium (Synthroid Tab*) 50 mcg PO 0600 [facility] Last Admin: 04/04/18 05:47 Dose: 50 mcg Multivitamins (Theragran Tab*) 1 tab PO QAM [facility] Last Admin: 04/04/18 08:34 Dose: 1 tab Ondansetron HCl (Zofran Inj*) 4 mg IV Q6H PRN PRN Reason: NAUSEA Oxycodone/Acetaminophen (Percocet 5/325 Tab*) 1 tab PO Q4H PRN PRN Reason: PAIN Last Admin: 04/04/18 09:27 Dose: 1 tab Tamsulosin HCl (Flomax Cap*) 0.4 mg PO DAILY [facility] Last Admin: 04/04/18 08:34 Dose: 0.4 mg Trazodone HCl (Desyrel Tab*) 150 mg PO BEDTIME [facility] Last Admin: 04/03/18 20:46 Dose: 150 mg Venlafaxine HCl (Effexor Xr Cap*) 150 mg PO BID [facility] Last Admin: 04/04/18 08:34 Dose: 150 mg Vital Signs - 8 hr 04/04/18 04/04/18 04/04/18 08:02 08:50 09:19 Temperature 98.7 F Pulse Rate 95 Respiratory 18 18 Rate Blood Pressure 133/63 (mmHg) O2 Sat by Pulse 97 97 96 Oximetry 04/04/18 04/04/18 04/04/18 09:27 11:37 12:06 Temperature 98.7 F Pulse Rate 111 Respiratory 18 18 16 Rate Blood Pressure 118/72 (mmHg) O2 Sat by Pulse 97 Oximetry 04/04/18 15:21 Temperature 98.2 F Pulse Rate 94 Respiratory 15 Rate Blood Pressure 118/67 (mmHg) O2 Sat by Pulse 98 Oximetry Oxygen Devices in Use Now: None Appearance: sitting in chair, NAD Eyes: No Scleral Icterus, PERRLA Ears/Nose/Mouth/Throat: NL Teeth, Lips, Gums, Clear Oropharnyx Neck: NL Appearance and Movements; NL JVP Respiratory: Symmetrical Chest Expansion and Respiratory Effort, Clear to Auscultation Cardiovascular: RRR Abdominal: NL Sounds; No Tenderness; No Distention, No Hepatosplenomegaly Lymphatic: No Cervical Adenopathy Extremities: No Edema, - - righ knee ecchymosis and swelling Neurological: Alert and Oriented x 3, - - mild thenar atrophy, poor heel-knee- ankle movement on right Result Diagrams: 04/04/18 05:37 04/04/18 05:37 Assess/Plan/Problems-Billing Assessment: 67 yo M h/o TIAs and cerebellar CVA, LAMAR, HTN, DM2, cervical radiculopathy p/w recurrent falls - Patient Problems (1) Recurrent falls Comment: MRI brain with old cerebellar infarct. While this could account for falls it cannot explain increasing tempo of falls that pt describes over previous month Appreciate neurology assistance - cervical MRI. Poor quality. I have asked NS to evaluate and provide their input into need for surgey vs repeat cspine MRI, lumbar MRI or myelogram. TSH with normal free T3/T4 B12/folate wnl possible medication effect? - clonazepam, narcotics, flomax, lamictal and others Possible anemia contributing - check orthostatics Possible UTI at [place] (2) Right knee injury Comment: appreciate ortho assistance aspiration with minimal fluid - pt could not tolerate imaging without obvious fracture ice and elevate (3) History of epistaxis Comment: stable received transfusions at [place] in February Requesting records from last stay there monitor (4) Urinary retention Comment: chronic moran with failed removal 04/02 (5) Urinary tract infection Comment: abnormal urinalysis at [place] but noted to be with a moran catheter maintain CTX moran was to be removed 04/02 but failed trial void (6) Anemia Comment: stable stool occult blood pending recent admit [place] in February requiing 2 units PRBC (per patient) record request (7) DVT prophylaxis Comment: HSQ
[2018-04-04] MEDS: Atorvastatin* 10 MG TAB PO SCH (17:21)
[2018-04-04] MEDS: traZODone TAB* 100 MG PO SCH (21:04)
[2018-04-04] MEDS: Gabapentin CAP(*) 400 MG PO SCH (21:05)
[2018-04-05] MEDS: oxyCODONE/Acetamin 5/325 MG* TAB PO PRN ×4 (00:09→19:33)
--- NOTE | 2018-04-05 04:30 | CONS ---
CONSULTATION REPORT: DATE OF CONSULT: 04/04/18 HISTORY OF PRESENT ILLNESS: The patient is a very pleasant 67-year-old gentleman with history of hypertension, diabetes, chronic depression, TIA, cerebellar stroke, sinus infections, hyperlipidemia, status post cervical fusion and posterior lumbar fusion, who was admitted to the hospital after being transferred from [facility] for increased frequency of falls and right knee injury. I was requested to see the patient by Dr. Duncan because of MRI findings consistent with cervical spondylosis. The patient reports that he had some difficulty with balance prior to his cervical spine surgery that was stabilized. Appropriately one month ago he had one episode of weakness and then he has increased difficulty with his balance to the point where he had several falls. He reports that he feels unsteady on his feet and he had been using a cane and the last week a walker. The patient reports that he has no significant weakness in his upper and lower extremities. He has no numbness or tingling. He reports that he had no urinary or GI incontinence, although he has had a Mckinley because he reports that his urethra constricts after receiving anesthesia. PAST MEDICAL HISTORY: The patient has multiple comorbidities including hypertension, diabetes, depression, TIA, cerebellar stroke, sinus infection, hyperlipidemia, post-laminectomy syndrome, cervical fusion, degenerative disk disease, cellulitis of the right foot and joint, benign prostatic hypertrophy. PAST SURGICAL HISTORY: Anterior cervical diskectomy and fusion in 2014 in [place] and posterior fusion also in [place], bunionectomy, kidney stone extraction, MRSA infection to the left elbow, left knee arthroplasty. MEDICATIONS: The patient was on: 1. Aspirin. 2. Flomax. 3. Effexor. 4. Clonazepam. 5. Januvia. 6. Oxycodone. 7. Simvastatin. 8. Synthroid. 9. Glimepiride. 10. Galantamine. 11. Trazodone. 12. Lamotrigine. 13. Wellbutrin. 14. Gabapentin. 15. Glucosamine. 16. B12. 17. Ascorbic acid. ALLERGIES: The patient is allergic to FESOTERODINE, MIRABEGRON, OXYBUTYNIN. FAMILY HISTORY: Heart disease, stroke, sepsis. SOCIAL HISTORY: The patient is retired. He is a . He lives alone and he has one daughter, who takes care of him. Tobacco, negative. Alcohol, occasional. Recreational drug use, negative. PHYSICAL EXAM: The patient is not in acute distress. He lies comfortably in the bed and he is arousable. He is awake, alert, and oriented x3. His pupils are equal and reactive. Cranial nerves II through XII grossly intact. Motor 4- 5/5 in all extremities with the exception of his right knee extension, which is somewhat decreased in range of motion and his strength is 4-/5, possibly due to his recent right knee injury. Sensory is grossly intact to light touch. Deep tendon reflexes +1 in the upper extremities, +2 in the lower extremities. The right knee is not examined due to his recent injury. The patient has Babinski bilaterally. No clonus. Niyah's negative. The patient is ambulating with a wide, unsteady gait. Romberg test is negative. The patient has no dysmetria. He has some fine tremor. DIAGNOSTIC STUDIES/LAB DATA: The patient had an MRI of the brain revealing evidence of old cerebellar strokes. The patient also had MRI of the cervical spine that unfortunately is of suboptimal quality due to the patient's motion artifact as well as metallic artifact from his previous anterior cervical diskectomy and fusion between C4 and C7. Nevertheless, there is a stenosis at C3-4 and anterior disk-osteophyte complex at C7-T1 with significant canal stenosis in my review. Unfortunately, it is difficult to evaluate for cord signal changes, but on the sagittal imaging there is no apparent change. ASSESSMENT: The patient is a very pleasant 67-year-old gentleman with multiple medical problems with increased difficulties with his balance. The patient has evidence of cervical myelopathy in my exam, although MRI of the cervical spine is of suboptimal quality to evaluate for the degree of stenosis. For that reason, we would consider repeating the MRI of the cervical spine and also obtain a CT scan of the cervical spine with flexion-extension x-ray of the cervical spine. If the pathology on the repeat MRI of the cervical spine is not able to justify his symptoms then MRI of the thoracic spine may be also considered. The patient recently evaluated by Dr. Killian and he is scheduled for EMG. I will be happy to discuss with Dr. Killian and Dr. Duncan regarding the findings of further imaging and if they confirm significant stenosis at C7- T1 level, the patient will benefit from the posterior cervical decompression and fusion between C2 and T2 with multilevel laminectomies. We discussed the possibility of surgical intervention with the patient and the plan for obtaining further imaging for finalizing the plan. Thank you for allowing us to participate in the care of this patient. Please do not hesitate to contact our office in case you have any further questions or concerns regarding the care of this patient. [id number]/[facility] #: [id number] [facility]
--- NOTE | 2018-04-05 04:47 | PN ---
NEUROLOGICAL FOLLOWUP NOTE: DATE OF FOLLOWUP: 04/04/18 PATIENT OF: Dr. Duncan. HISTORY OF PRESENT ILLNESS: Mr. Goodwin has no change in his gait since yesterday. If anything he feels little improved. He has some aching in his knee and he notes that his falls are somewhat unpredictable. MEDICATIONS: His medications include: 1. Aspirin 81 mg daily. 2. Lipitor 10 mg daily. 3. Wellbutrin 150 b.i.d. 4. Clonazepam 0.5 b.i.d. p.r.n. 5. Gabapentin 400 at bedtime. 6. Galantamine 16 mg q.a.m. 7. Ceftriaxone 1 g q. 24 hours. 8. Insulin protocol. 9. Lamotrigine 100 mg in the morning. 10. Synthroid 50 mcg daily. 11. Zofran p.r.n. 12. Oxycodone p.r.n. 13. Trazodone 150 at bedtime. 14. Effexor 150 b.i.d. PHYSICAL EXAMINATION: Temperature 98.2, pulse 94, respirations 15, and blood pressure 118/67. He is alert and oriented. Cranial nerves II through XII are intact. Chest: Clear. Cardiovascular: Regular rate and rhythm. Abdomen: Soft. DIAGNOSTIC STUDIES/LAB DATA: I reviewed his MRI scan films that showed no cerebellar stroke and no new acute strokes. His C-spine MRI scan with poor quality and did show some cervical stenosis. There was no clear cord compression, but portions of it were difficult to assess due to motion. He remains anemic with hematocrit of 25. ASSESSMENT/PLAN: I discussed with him and Dr. Duncan that his walking problems may be a combination of his peripheral neuropathy, cerebellar stroke, the multiple medications he is on, and his anemia. However, it is possible he could also have a component of significant lumbar stenosis. Dr. Duncan has contacted neurosurgeons to see if they feel further evaluation is needed to clear his neck and if not, then we should also look for lumbar spine. He is going to get a lumbar MRI scan on Mr. Goodwin. Thank you for sharing his case. [id number]/[facility] #: [id number] ANAND
[2018-04-05] MEDS: Heparin VIAL(*) 5000 UNITS/ML VIAL (FIVE THOUSAND) SUBCUT SCH ×3 (05:31→21:31)
[2018-04-05] MEDS: cefTRIAXone(*) 1 GM in NS 0.9% 50 ML* 50 ML IVPB SCH (05:31)
[2018-04-05 06:01] LABS: ABS Basophils 0.1 10^3/ul (0-0.2); ABS Eosinophils 0.2 10^3/ul (0-0.6); ABS Lymphocytes 1.6 10^3/ul (1.0-4.8); ABS Monocytes 0.5 10^3/ul (0-0.8); ABS Neutrophils 3.8 10^3/ul (1.5-7.7); ABS Nucleated RBC 0 10^3/ul; Eosinophil % 3.3 % (0-6); Hematocrit 26 % (42-52); Hemoglobin 8.8 g/dl (14.0-18.0); Lymphocyte % 25.5 % (25-47); Mean Corpuscular HGB Conc 34 g/dl (31-36); Mean Corpuscular Hemoglobin 32 pg (27-31); Mean Corpuscular Volume 93 fL (80-94); Mean Platelet Volume 7.8 um3 (7.4-10.4); Nucleated Red Blood Cells % 0; Platelet Count 246 10^3/ul (150-450); Red Blood Count 2.77 10^6/ul (4.00-5.40); Red Cell Distribution Width 14 % (10.5-15); White Blood Count 6.2 10^3/ul (3.5-10.8)
[2018-04-05] MEDS: Levothyroxine TAB* 50 MCG TAB PO SCH (06:32)
[2018-04-05] MEDS: Venlafaxine EXT RELEASE CAP* 75 MG PO SCH ×2 (08:57→21:30)
[2018-04-05] MEDS: buPROPion SR TAB.SR* 150 MG PO SCH ×2 (08:57→21:30)
[2018-04-05] MEDS: Cyanocobalamin TAB* 500 MCG PO SCH (08:57)
[2018-04-05] MEDS: Aspirin 81 mg CHEW TAB* 81 MG TAB.CHEW PO SCH (08:57)
[2018-04-05] MEDS: Calcium/Vitamin D TAB 250/125* TAB PO SCH (08:57)
[2018-04-05] MEDS: lamoTRIgine TAB(*) 25 MG PO SCH (08:57)
[2018-04-05] MEDS: Vitamin THERAPEUTIC TAB PO SCH (08:57)
[2018-04-05] MEDS: Tamsulosin CAP* 0.4 MG PO SCH (08:57)
[2018-04-05] MEDS: Insulin LISPRO* 1 UNITS UNIT SUBCUT SCH ×3 (08:59→17:25)
[2018-04-05] MEDS: GALANTAMINE 16 MG PO SCH (09:00)
[2018-04-05] MEDS: OMEGA-3 FATTY ACIDS (NF) 1,000 MG CAP PO SCH (09:00)
[2018-04-05] MEDS ORDERED: Morphine VIAL* 4 MG/ML VIAL (1 ml vial) IV ONE (10:15)
--- NOTE | 2018-04-05 11:58 | RAD ---
HISTORY: eval stenosis per neurosurg COMPARISONS: April 03, 2018 TECHNIQUE: The following sequences were obtained of the cervical spine: Sagittal T1- and T2-weighted images, sagittal STIR images, axial T2 and gradient echo images. FINDINGS: BRAIN AND SPINAL CORD: There is chronic appearing infarct of the left inferior cerebellum. ALIGNMENT: There is straightening of the normal cervical lordosis. The alignment is otherwise normal. VERTEBRAL BODIES: There is multilevel anterolateral marginal osteophyte formation. The patient is status post anterior cervical fusion from C4 through C7. JOINTS: There is uncovertebral and facet osteoarthritis. MUSCULATURE: Unremarkable INTERVERTEBRAL DISCS: There is diffuse loss of intervertebral disc height and T2 signal throughout the spine. AXIAL IMAGES: C2-C3: There is right greater than left uncovertebral and facet hypertrophy. There is severe right and moderate left neural foraminal area. There is partial effacement of the right lateral recess. C3-C4: There is a broad-based disc osteophyte complex with right greater than left uncovertebral and facet hypertrophy. There is severe right and moderate left neural foraminal narrowing. There is moderate narrowing of the central canal. C4-C5: There is bilateral uncovertebral and facet hypertrophy. There is severe left neural foraminal narrowing. There is no significant central canal stenosis. C5-C6: There is bilateral uncovertebral and facet hypertrophy. There is severe right and moderate left neural foraminal narrowing. There is no significant central canal stenosis. C6-C7: There is bilateral uncovertebral and facet hypertrophy. There is severe bilateral neural foraminal narrowing. There is no significant central canal stenosis. C7-T1: There is a broad-based disc osteophyte complex with bilateral uncovertebral and facet hypertrophy. There is severe left and moderate right neural foraminal narrowing. There is mild narrowing of the central canal. SOFT TISSUES: The visualized soft tissues of the neck are unremarkable. OTHER: None. IMPRESSION: 1. DEGENERATIVE DISC DISEASE AND OSTEOARTHRITIS. 2. STATUS POST SPINAL FUSION. 3. THERE IS MODERATE NARROWING OF THE CENTRAL CANAL AT C3-C4 WITH MILD NARROWING AT C7-T1 AND PARTIAL EFFACEMENT OF THE RIGHT LATERAL RECESS AT C2-C3. 4. THERE IS MULTILEVEL NEURAL FORAMINAL NARROWING DESCRIBED ABOVE. 5. CHRONIC LEFT CEREBELLAR INFARCT
--- NOTE | 2018-04-05 12:04 | RAD ---
HISTORY: Back pain, unsteady gait COMPARISONS: None TECHNIQUE: The following sequences were obtained of the thoracic spine: Sagittal T1 and T2-weighted images, sagittal STIR images, coronal T2-weighted images, and axial T2-weighted images. . FINDINGS: Localization is based on counting from C2 SPINAL CORD, CONUS, AND CAUDA EQUINA: The visualized spinal cord, conus, and cauda equina are normal in caliber, position, and signal intensity. ALIGNMENT: The alignment is normal. VERTEBRAL BODIES: There is mild anterior wedging of T6 and T4 consistent with chronic compression fractures. There is no osseous retropulsion. JOINTS: There is mild osteoarthritis of the costovertebral articulations. MUSCULATURE: Unremarkable INTERVERTEBRAL DISCS: There is diffuse loss of intervertebral disc height and T2 signal throughout the spine. AXIAL IMAGES: On axial images, there is mild disc bulging at T2-T3, T3-T4, and T5-T6. At T4-T5, there is a 0.4 cm left lateral recess disc protrusion. At T8-T9, there is a 0.3 cm central disc protrusion. There is no significant neural foraminal or central canal stenosis. SOFT TISSUES: The visualized soft tissues of the chest and upper abdomen are unremarkable. OTHER: None. IMPRESSION: 1. DEGENERATIVE DISC DISEASE AND OSTEOARTHRITIS. 2. NO SIGNIFICANT NEURAL FORAMINAL NARROWING OR CENTRAL CANAL STENOSIS. 3. CHRONIC COMPRESSION FRACTURES OF T4 AND T6.
--- NOTE | 2018-04-05 12:10 | RAD ---
HISTORY: eval stenosis per neurosurg, back pain, unsteady gait COMPARISONS: None TECHNIQUE: The following sequences were obtained of the lumbar spine: Sagittal and axial T1- and T2-weighted images, coronal T2-weighted images, and sagittal STIR images. FINDINGS: SPINAL CORD, CONUS, AND CAUDA EQUINA: The visualized spinal cord, conus, and cauda equina are normal in caliber, position, and signal intensity. ALIGNMENT: There is a dextroscoliotic curvature of the spine. There is trace retrolisthesis of L1 on L2. VERTEBRAL BODIES: The bones are normal in signal intensity. JOINTS: There is multilevel anterolateral marginal osteophyte formation. MUSCULATURE: Unremarkable INTERVERTEBRAL DISCS: There is diffuse loss of intervertebral disc height and T2 signal throughout the spine. AXIAL IMAGES: T12-L1: There is a central disc protrusion measuring 0.5 cm in depth. There is no significant neural foraminal narrowing or central canal stenosis. L1-L2: There is broad-based disc bulge/rolled disc. There is bilateral facet hypertrophy. There is moderate left and mild right neural foraminal narrowing. There is mild narrowing of the central canal. L2-L3: There is bilateral facet hypertrophy. There is marginal osteophyte formation at the neural foramina bilaterally. There is moderate bilateral neuroforaminal narrowing. There is mild narrowing of the central canal. L3-L4: There is bilateral facet hypertrophy. There is mild bilateral neuroforaminal narrowing. There is no significant central canal stenosis. L4-L5: There is a broad-based disc bulge. There is bilateral facet hypertrophy. There is marginal osteophyte formation at the neural foramina bilaterally. There is a broad-based central disc protrusion measuring 0.3 cm in depth. There is severe bilateral neural foraminal narrowing. There is no significant central canal stenosis. L5-S1: There is bilateral facet hypertrophy. There is mild bilateral neuroforaminal narrowing. There is no significant central canal stenosis. SOFT TISSUES: The visualized soft tissues of the abdomen are unremarkable. OTHER: None. IMPRESSION: DEGENERATIVE DISC DISEASE AND OSTEOARTHRITIS. THERE ARE CENTRAL DISC PROTRUSIONS AT T12-L1 AND L4-L5. THERE IS MULTILEVEL NEURAL FORAMINAL NARROWING DESCRIBED ABOVE. THERE IS MILD NARROWING OF THE CENTRAL CANAL AT L1-L2 AND L2-L3.
--- NOTE | 2018-04-05 12:41 | RAD ---
Indication: Neck injury. 5 views of the cervical spine including flexion and extension lateral views were obtained. There is fusion of C3-C7. Flexion and extension views demonstrates no evidence of spondylolisthesis. The plate is well seated. IMPRESSION: Anterior fusion with a plate and screws through C3-C7.
--- NOTE | 2018-04-05 12:51 | RAD ---
HISTORY: eval stenosis per neurosurg, multiple falls COMPARISONS: July 16, 2017, MRI dated April 05, 2018 TECHNIQUE: Multiple contiguous axial CT scans were obtained of the cervical spine without intravenous contrast, with coronal and sagittal multiplanar reformations. FINDINGS: BRAIN: Again noted is a chronic infarct of the left inferior cerebellum. CENTRAL CANAL: Evaluation of the central canal is limited on CT technique; however, there is no obvious canalicular mass or epidural hemorrhage. ALIGNMENT: There is a levoscoliotic curvature of the spine. VERTEBRAL BODIES: The patient is status post anterior cervical fusion from C4 through C7. There is no hardware failure or osteolysis. There is anterolateral marginal osteophyte formation most pronounced at C7-T1. JOINTS: There is no subluxation or dislocation. There is uncovertebral and facet hypertrophy most pronounced on the right along the upper cervical spine. MUSCULATURE: Unremarkable INTERVERTEBRAL DISCS: There is diffuse loss of intervertebral disc height. AXIAL IMAGES: C2-C3: There is right greater than left uncovertebral and facet hypertrophy. There is severe right neural foraminal narrowing. There is no osseous central canal stenosis. C3-C4: There is bilateral uncovertebral and facet hypertrophy. There is severe right and mild left neural foraminal narrowing. There is no osseous central canal stenosis C4-C5: There is mild left neural foraminal narrowing. There is no osseous central canal stenosis. C5-C6: There is bilateral uncovertebral and facet hypertrophy. There is severe bilateral neuroforaminal narrowing. There is no osseous central canal stenosis. C6-C7: There is bilateral uncovertebral and facet hypertrophy. There is severe bilateral neural foraminal narrowing. There is no osseous central canal stenosis. C7-T1: There is left than the right uncovertebral hypertrophy. There is moderate left neural foraminal narrowing. There is no osseous central canal stenosis. SOFT TISSUES: The visualized soft tissues of the neck are unremarkable. The prevertebral fat stripe is preserved. OTHER: None. IMPRESSION: 1. STATUS POST SPINAL FUSION. 2. DEGENERATIVE DISC DISEASE AND OSTEOARTHRITIS DESCRIBED ABOVE.
--- NOTE | 2018-04-05 15:51 | PN ---
Progress Note - Progress Note Date of Service: 04/05/18 SOAP: Subjective: I was unable to see the patient today because he was in CT for numerous studies this am. I did speak to the nurse who stated he continued to have knee pain unchanged and controlled. He was up and doing well ambulating with PT Objective: Vital Signs Temp Pulse Resp BP Pulse Ox 98.5 F 106 18 114/61 97 04/05/18 12:58 04/05/18 13:01 04/05/18 15:05 04/05/18 13:01 04/05/18 13:01 Laboratory Results - last 24 hr 04/03/18 04/04/18 04/05/18 05:23 16:57 05:30 WBC 6.2 RBC 2.77 L Hgb 8.8 L Hct 26 L MCV 93 MCH 32 H MCHC 34 RDW 14 Plt Count 246 MPV 7.8 Neut % (Auto) 61.2 Lymph % (Auto) 25.5 Edwards % (Auto) 8.8 H Eos % (Auto) 3.3 Baso % (Auto) 1.2 Absolute Neuts (auto) 3.8 Absolute Lymphs (auto) 1.6 Absolute Monos (auto) 0.5 Absolute Eos (auto) 0.2 Absolute Basos (auto) 0.1 Absolute Nucleated RBC 0 Nucleated RBC % 0 Haptoglobin 261 H POC Glucose (mg/dL) 152 H 04/05/18 04/05/18 08:13 12:13 WBC RBC Hgb Hct MCV MCH MCHC RDW Plt Count MPV Neut % (Auto) Lymph % (Auto) Edwards % (Auto) Eos % (Auto) Baso % (Auto) Absolute Neuts (auto) Absolute Lymphs (auto) Absolute Monos (auto) Absolute Eos (auto) Absolute Basos (auto) Absolute Nucleated RBC Nucleated RBC % Haptoglobin POC Glucose (mg/dL) 170 H 228 H Assessment: right knee effusion/contusion Frequent falls at home Plan: WBAT- cont PT/OT Patient did not tolerate aspiration By Dr White well. Continue saul wrap for compression, ice and elevation follow up with Dr Weiss outpatient in 1-2 weeks
--- NOTE | 2018-04-05 16:21 | PN ---
Subjective Date of Service: 04/05/18 Interval History: Feeling improved today. Had not walked yet with PT when I saw him but note later in the day reflects he did well Pain improving Objective Active Medications: Acetaminophen (Tylenol Tab*) 650 mg PO Q4H PRN PRN Reason: FEVER/PAIN Aspirin (Aspirin 81 Mg Chew Tab*) 81 mg PO DAILY [facility] Last Admin: 04/05/18 08:57 Dose: 81 mg Atorvastatin Calcium (Lipitor*) 10 mg PO 1700 [facility] Last Admin: 04/04/18 17:21 Dose: 10 mg Bupropion HCl (Wellbutrin Sr Tab*) 150 mg PO BID [facility] Last Admin: 04/05/18 08:57 Dose: 150 mg Calcium/Vitamin D (Oscal D Tab 250/125*) 1 tab PO DAILY [facility] Last Admin: 04/05/18 08:57 Dose: 1 tab Clonazepam (Klonopin Tab(*)) 0.5 mg PO BID PRN PRN Reason: ANXIETY Cyanocobalamin (Vitamin B12 Tab*) 2,000 mcg PO QAM [facility] Last Admin: 04/05/18 08:57 Dose: 2,000 mcg Dextrose (D50w Syringe 50 Ml*) 12.5 gm IV PUSH .FOR FS < 60 - SS PRN PRN Reason: FS < 60 Fish Oil (Fish Oil (Nf)) 1,000 mg PO QAM [facility]; Protocol Last Admin: 04/05/18 09:00 Dose: Not Given Gabapentin (Neurontin Cap(*)) 400 mg PO BEDTIME [facility] Last Admin: 04/04/18 21:05 Dose: 400 mg Galantamine Hydrobromide (Galantamine Er (Nf)) 16 mg PO QAM [facility] Last Admin: 04/05/18 09:00 Dose: Not Given Heparin Sodium (Porcine) (Heparin Vial(*)) 5,000 units SUBCUT Q8HR [facility] Last Admin: 04/05/18 14:51 Dose: 5,000 units Ceftriaxone Sodium 1 gm/ (Sodium Chloride) 50 mls @ 200 mls/hr IVPB Q24H [facility] Last Admin: 04/05/18 05:31 Dose: 200 mls/hr Insulin Human Lispro (Humalog*) 0 units SUBCUT AC [facility]; Protocol Last Admin: 04/05/18 12:30 Dose: 4 units Lamotrigine (Lamictal Tab(*)) 100 mg PO QAM [facility] Last Admin: 04/05/18 08:57 Dose: 100 mg Levothyroxine Sodium (Synthroid Tab*) 50 mcg PO 0600 [facility] Last Admin: 04/05/18 06:32 Dose: 50 mcg Multivitamins (Theragran Tab*) 1 tab PO QAM [facility] Last Admin: 04/05/18 08:57 Dose: 1 tab Ondansetron HCl (Zofran Inj*) 4 mg IV Q6H PRN PRN Reason: NAUSEA Oxycodone/Acetaminophen (Percocet 5/325 Tab*) 1 tab PO Q4H PRN PRN Reason: PAIN Last Admin: 04/05/18 12:30 Dose: 1 tab Tamsulosin HCl (Flomax Cap*) 0.4 mg PO DAILY [facility] Last Admin: 04/05/18 08:57 Dose: 0.4 mg Trazodone HCl (Desyrel Tab*) 150 mg PO BEDTIME [facility] Last Admin: 04/04/18 21:04 Dose: 150 mg Venlafaxine HCl (Effexor Xr Cap*) 150 mg PO BID [facility] Last Admin: 04/05/18 08:57 Dose: 150 mg Vital Signs - 8 hr 04/05/18 04/05/18 04/05/18 09:49 09:57 12:30 Temperature Pulse Rate Respiratory 16 18 18 Rate Blood Pressure (mmHg) O2 Sat by Pulse Oximetry 04/05/18 04/05/18 04/05/18 12:58 13:01 15:05 Temperature 98.5 F Pulse Rate 90 106 Respiratory 16 18 Rate Blood Pressure 132/69 114/61 (mmHg) O2 Sat by Pulse 93 97 Oximetry 04/05/18 15:31 Temperature 98.5 F Pulse Rate 94 Respiratory 20 Rate Blood Pressure 122/69 (mmHg) O2 Sat by Pulse 93 Oximetry Oxygen Devices in Use Now: None Appearance: NAD Eyes: No Scleral Icterus, PERRLA Ears/Nose/Mouth/Throat: NL Teeth, Lips, Gums, Clear Oropharnyx Respiratory: Symmetrical Chest Expansion and Respiratory Effort, Clear to Auscultation Cardiovascular: RRR Abdominal: NL Sounds; No Tenderness; No Distention, No Hepatosplenomegaly Lymphatic: No Cervical Adenopathy Extremities: - - right knee edematous and with bruising up medial thigh Neurological: Alert and Oriented x 3 Result Diagrams: 04/05/18 05:30 04/04/18 05:37 Assess/Plan/Problems-Billing Assessment: 67 yo M h/o TIAs and cerebellar CVA, LAMAR, HTN, DM2, cervical radiculopathy p/w recurrent falls - Patient Problems (1) Recurrent falls Comment: MRI brain with old cerebellar infarct. While this could account for falls it cannot explain increasing tempo of falls that pt describes over previous month Appreciate neurology assistance - cervical MRI. Poor quality. Appreciate NS evaluation - additional imaging and they will review and meet with pt to discuss options TSH with normal free T3/T4 B12/folate wnl possible medication effect? - clonazepam, narcotics, flomax, lamictal and others Possible anemia contributing Possible UTI at [facility] (2) Right knee injury Comment: appreciate ortho assistance aspiration with minimal fluid - pt could not tolerate imaging without obvious fracture ice and elevate (3) History of epistaxis Comment: stable received transfusions at [facility] in February Requesting records from last stay there monitor (4) Urinary retention Comment: chronic moran with failed removal 04/02 (5) Urinary tract infection Comment: abnormal urinalysis at [facility] but noted to be with a moran catheter maintain CTX moran was to be removed 04/02 but failed trial void (6) Anemia Comment: stable stool occult blood pending recent admit [facility] in February requiing 2 units PRBC (per patient) record request (7) DVT prophylaxis Comment: HSQ
[2018-04-05] MEDS: Atorvastatin* 10 MG TAB PO SCH (17:25)
[2018-04-05] MEDS: clonazePAM TAB(*) 0.5 MG PO PRN (21:30)
[2018-04-05] MEDS: traZODone TAB* 100 MG PO SCH (21:31)
[2018-04-05] MEDS: Gabapentin CAP(*) 400 MG PO SCH (21:31)
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
--- NOTE | 2018-04-06 00:20 | PN ---
PROGRESS NOTE: DATE OF SERVICE: 04/05/18 - ROOM #402 PATIENT OF: Dr. Duncan. HISTORY: This is a 67-year-old man following up for his gait disturbance. Dr. Cortez is kind enough to consult on him and recommended further MRI scans and imaging. The patient feels his gait is unchanged and has no new complaints. MEDICATIONS: His medications continued to be: 1. Aspirin 81 daily. 2. Lipitor 10 mg daily. 3. Wellbutrin 150 twice a day. 4. Ceftriaxone. 5. Klonopin 0.5 p.r.n. 6. Gabapentin 400 mg at bedtime. 7. Lamictal 100 mg in the morning. PHYSICAL EXAMINATION: On exam, temperature 98.5, pulse 106, respirations 16, blood pressure 141/61. He is alert and oriented with normal speech and comprehension. Cranial nerves II through XII were intact. Motor exam revealed normal tone and strength. Chest: Clear. Cardiovascular: Regular rate and rhythm. Abdomen is soft with positive bowel sounds. DIAGNOSTIC STUDIES: I reviewed his new cervical MRI scan, lumbar MRI scan and thoracic MRI scan, which showed multilevel neuroforaminal disk disease and osteoarthritis. There was some central stenosis at cervical and lumbar levels, but no cord compression that would need urgent treatment. I defer to Dr. Cortez whether any disk is severe enough to be causing other problems, but there is no clear explanation on his MRI scans for the change in his walking. ASSESSMENT/PLAN: I discussed with Dr. Duncan and I think that his walking problems may be multifactorial including his old cerebellar stroke, his peripheral neuropathy, his vertebral disk disease and medications he is taking. I do not think there is anything here that is likely to be fixed to reverse his symptoms, but I would recommend as an outpatient trying to simplify his medical regimen. Thank you for sharing his case. [id number]/[facility] #: [id number] ANAND
[2018-04-06] MEDS: Levothyroxine TAB* 50 MCG TAB PO SCH (06:00)
[2018-04-06] MEDS: Heparin VIAL(*) 5000 UNITS/ML VIAL (FIVE THOUSAND) SUBCUT SCH (06:00)
[2018-04-06] MEDS: cefTRIAXone(*) 1 GM in NS 0.9% 50 ML* 50 ML IVPB SCH (06:00)
[2018-04-06 07:22] VITALS: BP 133/71
[2018-04-06] MEDS: Vitamin THERAPEUTIC TAB PO SCH (07:54)
[2018-04-06] MEDS: Venlafaxine EXT RELEASE CAP* 75 MG PO SCH (07:54)
[2018-04-06] MEDS: Aspirin 81 mg CHEW TAB* 81 MG TAB.CHEW PO SCH (07:54)
[2018-04-06] MEDS: Calcium/Vitamin D TAB 250/125* TAB PO SCH (07:54)
[2018-04-06] MEDS: Insulin LISPRO* 1 UNITS UNIT SUBCUT SCH (07:54)
[2018-04-06] MEDS: lamoTRIgine TAB(*) 25 MG PO SCH (07:55)
[2018-04-06] MEDS: buPROPion SR TAB.SR* 150 MG PO SCH (07:55)
[2018-04-06] MEDS: Cyanocobalamin TAB* 500 MCG PO SCH (07:55)
[2018-04-06] MEDS: Tamsulosin CAP* 0.4 MG PO SCH (07:55)
[2018-04-06] MEDS: clonazePAM TAB(*) 0.5 MG PO PRN (08:02)
[2018-04-06] MEDS: oxyCODONE/Acetamin 5/325 MG* TAB PO PRN (08:02)
[2018-04-06] MEDS: GALANTAMINE 16 MG PO SCH (08:06)
[2018-04-06] MEDS: OMEGA-3 FATTY ACIDS (NF) 1,000 MG CAP PO SCH (09:37)
--- NOTE | 2018-04-06 09:45 | PN ---
Progress Note - Progress Note Date of Service: 04/06/18 SOAP: Subjective: [Pt was seen today sitting up in bed. States that he feels his knee pain is improving. Feels he has more motion in the knee. Denies any chest pain, SOB, n/ t. ] Objective: [General: alert and oriented x 3. NAD. MSK, RLE: There is ecchymosis present anterior and medial around the knee. There is moderate swelling present. Tender to palpation along the medial aspect of the knee. Tenderness along the anterior portion and slight tenderness laterally. He is able to extend the knee to about 10 degrees shy of full extension and is able to flex the knee to about 60 degrees. He is able to df/ pf. Sensation intact distally. 2+ DP pulse Vital Signs Temp 97.9 F 04/06/18 07:22 Pulse 91 04/06/18 07:22 Resp 16 04/06/18 08:02 BP 133/71 04/06/18 07:22 Pulse Ox 93 04/06/18 07:22 Intake & Output 04/05/18 04/06/18 04/06/18 18:59 06:59 18:59 Intake Total 1336 490 Output Total 300 1999 Balance 1036 -1510 Intake: IV Fluids 15 D5W NS (0.9%) 15 IVPB 51 ABX - CEFTRIAXONE 51 Oral 1270 490 Output: Urine 0 Mckinley 300 2000 ] Assessment: right knee effusion/contusion Frequent falls at home Plan: WBAT- cont PT/OT Continue saul wrap for compression, ice and elevation follow up with Dr Weiss outpatient in 1-2 weeks
--- NOTE | 2018-04-06 16:36 | DS ---
CC: Dr. Cast * DISCHARGE SUMMARY: DATE OF ADMISSION: 04/03/18 DATE OF DISCHARGE: 04/06/18 PRIMARY CARE PROVIDER: Dr. Chele Cast in [place], associated with [facility]. PRIMARY DIAGNOSIS: Gait imbalance with frequent falls. SECONDARY DIAGNOSES: Include: 1. Right knee trauma. 2. Anxiety. 3. Diabetes. 4. Hyperlipidemia. 5. Obstructive sleep apnea. 6. Cervical disk disease, potentially benefiting from surgical decompression. 7. Urinary tract infection with Enterobacter freundii. 8. Iron deficiency anemia. MEDICATIONS ON DISCHARGE: Include: 1. Clopidogrel 75 mg daily. 2. Aspirin 81 mg daily. 3. Tamsulosin 0.4 mg daily. 4. Effexor 150 mg twice daily. 5. Clonazepam 0.5 mg twice daily. 6. Sitagliptin 100 mg in the morning. 7. Oxycodone/acetaminophen 7.5/325 one tab every 6 hours as needed, none dispensed. 8. Simvastatin 20 mg in the evening. 9. Levothyroxine 50 mcg in the morning. 10. Glimepiride 4 mg in the morning. 11. Galantamine 16 mg in the morning. 12. Trazodone 150 mg at bedtime. 13. Lamictal 100 mg in the morning. 14. Bupropion SR 150 mg twice daily. 15. Gabapentin 400 mg at bedtime. 16. Fish oil 1000 mg in the morning. 17. Cholecalciferol 1000 units daily. 18. Vitamin E 400 units in the morning. 19. Calcium with vitamin D 1 cap daily. 20. Multivitamin 1 tab daily. 21. Glucosamine/chondroitin 1 cap daily. 22. Vitamin B12 2000 mcg in the morning. 23. Ascorbic acid 1000 mg in the morning. 24. Ciprofloxacin 500 mg twice daily. Please note the addition of ciprofloxacin 500 mg twice daily is for 3 additional days. PERTINENT MICROBIOLOGY: Urinalysis was positive for leuk esterase and white blood cell, but negative for bacteria. Please note that the patient was transferred from [facility] and culture results there indicated Enterobacter freundii sensitive to fluoroquinolones. Results were faxed and placed in chart. OTHER PERTINENT LABORATORY DATA: Hemoglobin on discharge 8.8. Haptoglobin 261. Retic count 2.9 with corrected retic count 1.5. TSH is 7.75 with free T4 0.8 and free T3 2.8. Ferritin is 74, percent iron saturation is 7, TIBC is 354 , iron is 25. PERTINENT IMAGING: Brain MRI, impression: Moderate cortical atrophy. Old left cerebellar infarct. Mild chronic microvascular ischemic changes. No acute intracranial findings. Pelvis CT: No fracture or dislocation involving the pelvis or right femur. Lower extremity CT of the right lower extremity, impression: No fracture or dislocation involving the pelvis or right femur. There are multifocal subcutaneous hematomas overlying the anteromedial distal right femur and knees as well as small hyperattenuated fluid collection in the suprapatellar joint space consistent with a small amount of hemarthrosis. Cervical MRI: Degenerative disk disease. Status post spinal fusion. There was moderate narrowing of the central canal at C3-C4 with mild narrowing at C7- T1 and partial effacement of the right lateral recess at C2-C3. There are multilevel neuroforaminal stenoses and chronic left cerebellar infarct is also identified. Lumbar spine MRI: Degenerative disk disease and osteoarthritis. Central disk protrusions at T12-L1 and L4-L5. Multilevel neuroforaminal narrowing. There is mild narrowing in the central canal at L1-L2 and L2-L3. Thoracic spine MRI: Degenerative disk disease and osteoarthritis. No significant neuroforaminal narrowing or central canal stenosis. Chronic compression fracture of T4 and T6. CONSULTATIONS OBTAINED DURING THE COURSE OF THE HOSPITAL STAY: Include Orthopedic Surgery, Neurology, and Neurosurgery. HISTORY OF PRESENT ILLNESS AND HOSPITAL COURSE: This is a 67-year-old gentleman with past medical history as outlined in the history of present illness on the day of admission, presented to the hospital with increased frequency of his chronic falls. The patient presented to [facility]. He did note that he has a chronic Mckinley for BPH that was to be changed, but he failed his trial of void. He presented, Mckinley was maintained, but removed prior to discharge and after passing trial of void. The patient's right knee did not have any evidence of fracture. Some concern for hemarthrosis. He was unable to tolerate an arthrocentesis by Orthopedic Surgery. He was maintained on ice and elevated. His hemoglobin remained stable and his pain improved. He should follow up with Orthopedic Surgery in two to four weeks. There was concern for central reason leading to his recurrent falls. Imaging as above was noted. A chronic cerebellar infarct was identified. There was concern for cord compression. He was seen in conjunction with Neurosurgery. There was discussion that he may benefit from decompressive surgery. He had this conversation with Dr. Cortez, who documents that the patient declined surgery at this point. The patient should follow up with Neurosurgery if further consideration to surgery would be made on the patient's behalf. No other etiology of increased frequency of chronic fall was identified; however, he was identified with a urinary tract infection while at [facility]. He was maintained on ceftriaxone while hospitalized and discharged on three additional days of ciprofloxacin to complete seven days of antibiotics. He was seen by Physical Therapy and was able to ambulate well with his chronic walker. Home physical therapy was recommended and contacts for its initiation were provided. The patient was hospitalized in February at [facility] for epistaxis, required several blood transfusions. Iron- deficiency anemia was identified and he was started on iron. I suspect the patient in conjunction with his chronic cerebellar infarct superimposed with anemia and urinary tract infection was enough to increase his frequency of falls. At followup, please; 1. Ensure that the patient completes his antibiotics. 2. Ensure the patient follows up with Orthopedic Surgery as identified. 3. If the patient should consider neurosurgery, please set up appointment with Dr. Cortez, as indicated above. 4. Consider serial CBCs to follow for improvement in iron deficiency anemia. 5. No other specific labs or vitals are pending at the time of the patient's discharge. Reasons to return to the hospital including but not limited to recurrent or worsening symptoms including increasing falls, any trauma, head strike, loss of consciousness, chest pain, shortness of breath, nausea, vomiting, lightheadedness, inability to obtain or tolerate medications, bleeding from any source were discussed with the patient at length. He acknowledged understanding. TIME SPENT: Greater than 75 minutes was spent on the discharge of the patient, greater than half was spent [id number] with the patient. [id number]/[facility] #: [id number] ANAND
== END 2018-04-06 13:00 | disposition short-term general hospital (02) | DRG 463 ==
LOC: MED 04:24
PROVIDERS: ADMIT Hospitalist; ATTEND Internal Medicine
PROC: 0S9C3ZZ Drainage of Right Knee Joint, Percutaneous Approach (ICD-10-PCS; principal; 2018-04-03)
DX: N39.0 Urinary tract infection, site not specified (principal); D50.9 Iron deficiency anemia, unspecified; R26.89 Other abnormalities of gait and mobility; F41.9 Anxiety disorder, unspecified; G47.33 Obstructive sleep apnea (adult) (pediatric); E78.5 Hyperlipidemia, unspecified; K21.9 Gastro-esophageal reflux disease without esophagitis; N40.0 Benign prostatic hyperplasia without lower urinary tract symptoms; I10 Essential (primary) hypertension; Z96.652 Presence of left artificial knee joint; E11.42 Type 2 diabetes mellitus with diabetic polyneuropathy; F32.9 Major depressive disorder, single episode, unspecified; E03.9 Hypothyroidism, unspecified; B96.89 Other specified bacterial agents as the cause of diseases classified elsewhere; M47.895 Other spondylosis, thoracolumbar region; R29.6 Repeated falls; R33.9 Retention of urine, unspecified; W19.XXXA Unspecified fall, initial encounter; M25.461 Effusion, right knee; S80.01XA Contusion of right knee, initial encounter; M41.82 Other forms of scoliosis, cervical region; M25.78 Osteophyte, vertebrae; Z88.6 Allergy status to analgesic agent; Z88.8 Allergy status to other drugs, medicaments and biological substances; Z82.5 Family history of asthma and other chronic lower respiratory diseases; Z90.49 Acquired absence of other specified parts of digestive tract; Z86.73 Personal history of transient ischemic attack (TIA), and cerebral infarction without residual deficits; Z98.1 Arthrodesis status; Z91.81 History of falling; Y92.009 Unspecified place in unspecified non-institutional (private) residence as the place of occurrence of the external cause; Z87.442 Personal history of urinary calculi; Z86.14 Personal history of Methicillin resistant Staphylococcus aureus infection; Z79.02 Long term (current) use of antithrombotics/antiplatelets; Z79.82 Long term (current) use of aspirin; Z79.84 Long term (current) use of oral hypoglycemic drugs; Z82.49 Family history of ischemic heart disease and other diseases of the circulatory system; Z82.3 Family history of stroke
CPT/HCPCS: 36415; 70551; 72040; 72125; 72141; 72146; 72148; 72192; 80048; 81003; 81015; 82607; 82728; 82746; 83010; 83540; 83550; 83615; 83921; 84439; 84443; 84481; 85025; 85045; 95885; 95910; A9270-GY; J0696; J1644; J2270

== ENCOUNTER 2019-05-23 15:26 | Emergency (ER) | payer MEDICARE ==
[2019-05-23] MEDS ORDERED: Orphenadrine Citrate IV* 30 MG/ML 2 ML VIAL IV ONE (16:31)
[2019-05-23] MEDS ORDERED: Dexamethasone IV* 4 MG/ML 5 ML VIAL (20 MG) IVPB ONE (16:31)
[2019-05-23] MEDS ORDERED: Morphine 4 MG/ML VIAL (1 ml) 4 MG/ML VIAL IV ONE (16:32)
--- NOTE | 2019-05-23 16:34 | ED ---
Back Pain - HPI Summary HPI Summary: This patient is a 68 year old M presenting to ED with a chief complaint of lower back pain since 05/16/19. On 05/16/19 patient was doing a lot of lifting work and felt pain in his lower back, left hip radiating through the buttocks down the back of left leg to the ankle but not the foot. Patient states he has spasms and cannot stand up. Patient has a history of disc herniation surgery in neck and back in [place]. Patient takes Ibuprofen and Oxycodone when needed, which was rare. Patient denies havings problems urinating and having bowel movements.The patient rates the pain 8/10 in severity. Symptoms aggravated by nothing. Symptoms alleviated by nothing. Patient denies fevers, chills. - History of Current Complaint Chief Complaint: EDBackInjuryPain Stated Complaint: BACK PAIN Time Seen by Provider: 05/23/19 16:24 Hx Obtained From: Patient Onset/Duration: Gradual Onset, Lasting Weeks - Since 05/16/19, Still Present, Worse Since Onset/Duration: Started Weeks Ago - 1 week ago, Still Present Timing: Constant - Pain, Intermittent - Intermittent spasms Back Pain Location: Is Discrete @ - Lower back, Radiates To - through buttocks down back of left leg to ankle but not foot Severity Initially: Severe Severity Currently: Severe Pain Intensity: 8 Pain Scale Used: 0-10 Numeric Aggravating Symptom(s): Nothing Alleviating Symptom(s): Nothing Associated Signs And Symptoms: Positive: Negative - Chills. Negative: Fever - Allergies/Home Medications Allergies/Adverse Reactions: Allergies Allergy/AdvReac Type Severity Reaction Status Date / Time fesoterodine [From Toviaz] AdvReac Severe loss of Verified 05/23/19 15:32 balance mirabegron [From Myrbetriq] AdvReac Severe loss of Verified 05/23/19 15:32 balance oxybutynin AdvReac Severe loss of Verified 05/23/19 15:32 balance Home Medications: Home Medications Multivitamins/Minerals TAB* [Theragran/minerals TAB*] 1 tab PO DAILY 05/23/19 [ History Confirmed 05/23/19] PMH/Surg Hx/FS Hx/Imm Hx Endocrine/Hematology History: Reports: Hx Anticoagulant Therapy, Hx Diabetes, Hx Thyroid Disease - hypo Cardiovascular History: Reports: Hx Hypertension, Other Cardiovascular Problems/ Disorders - hyperlipidemia Denies: Hx Pacemaker/ICD Respiratory History: Reports: Hx Sleep Apnea, Other Respiratory Problems/ Disorders - hx of sinus infections - none at this time GI History: Reports: Hx Gastroesophageal Reflux Disease - Had surgery to correct , Other GI Disorders - problem with diarrhea from certain foods History: Reports: Other Problems/Disorders - BPH, hypotestosteronism Musculoskeletal History: Reports: Hx Arthritis, Hx Back Problems, Other Musculoskeletal History - DDD, cervical radiculopathy Sensory History: Reports: Hx Contacts or Glasses Denies: Hx Hearing Aid Opthamlomology History: Reports: Hx Contacts or Glasses Neurological History: Reports: Hx Transient Ischemic Attacks (TIA), Other Neuro Impairments/Disorders - per md note alzheimers dementia Psychiatric History: Reports: Hx Anxiety, Hx Depression Denies: Hx Panic Disorder - Cancer History Hx Chemotherapy: No - Surgical History Surgery Procedure, Year, and Place: gallbladder, cataracts, bunionectomy, left knee partial replacement, left elbow repair, right carpal tunnel, rhinoplasty, bladder stents, HERNIA, CERVICAL FUSION, LUMBAR FUSION Hx Anesthesia Reactions: No Infectious Disease History: No Infectious Disease History: Reports: Hx of Known/Suspected MRSA - elbow wound- mrsa- resolved Denies: Traveled Outside the [place] in Last 30 Days - Family History Known Family History: Positive: Cardiac Disease, Other - Stroke - Social History Alcohol Use: Rare Hx Substance Use: No Substance Use Type: Reports: None Substance Use Comment - Amount & Last Used: unknown Hx Tobacco Use: Yes Smoking Status (MU): Former Smoker Amount Used/How Often: smokes 3-4 cigars a year Review of Systems Negative: Fever, Chills Musculoskeletal: Other - Lower back pain radiating through buttocks into back of left leg down to ankle but not foot All Other Systems Reviewed And Are Negative: Yes Physical Exam - Summary Physical Exam Summary: VITAL SIGNS: Reviewed. GENERAL: Patient is a well-developed and nourished male who is lying comfortable in the stretcher. Patient is not in any acute respiratory distress. HEAD AND FACE: No signs of trauma. No ecchymosis, hematomas or skull depressions. No sinus tenderness. EYES: PERRLA, EOMI x 2, No injected conjunctiva, no nystagmus. EARS: Hearing grossly intact. Ear canals and tympanic membranes are within normal limits. MOUTH: Oropharynx within normal limits. NECK: Supple, trachea is midline, no adenopathy, no JVD, no carotid bruit, no c- spine tenderness, neck with full ROM. CHEST: Symmetric, no tenderness at palpation. LUNGS: Clear to auscultation bilaterally. No wheezing or crackles. CVS: Regular rate and rhythm, S1 and S2 present, no murmurs or gallops appreciated. ABDOMEN: Soft, non-tender. No signs of distention. No rebound, no guarding, and no masses palpated. Bowel sounds are normal. MUSCULOSKELETAL: left paraspinal muscle tenderness EXTREMITIES: negative straight leg raise NEURO: Alert and oriented x 3. No acute neurological deficits. Speech is normal and follows commands. SKIN: Dry and warm. Triage Information Reviewed: Yes Vital Signs On Initial Exam: Initial Vitals Temp Pulse Resp BP Pulse Ox 99 F 90 16 155/100 95 05/23/19 15:29 05/23/19 15:29 05/23/19 15:29 05/23/19 15:29 05/23/19 15:29 Vital Signs Reviewed: Yes Diagnostics - Vital Signs Vital Signs Temp Pulse Resp BP Pulse Ox 05/23/19 15:29 99 F 90 16 155/100 95 - Laboratory Lab Statement: Any lab studies that have been ordered have been reviewed, and results considered in the medical decision making process. - CT L-spine CT Interpretation Completed By: Radiologist Summary of CT Findings: 1) Multilevel degenerative disc disease is noted. There is grade 1. spondylolisthesis of L4 on 5 with marked facet hypertrophy and broad-based protrusion which appears to narrow both intervertebral foramen. 2) Mild facet arthropathy is noted at L2-L3 and L3-L4. 3) At L1-L2 there is retrolisthesis noted. No evidence of focal protrusion fracture is noted. Dr. Paiz has reviewed this radiology report. Re-Evaluation - Re-Evaluation First Eval Re-Evaluation Time: 18:12 Comment: Patient reports feeling better. Discussed results with patient. Patient will be discharged home w dx of back pain. Patient understands and agrees with this plan. Back Pain Course/Dx - Course Assessment/Plan: This patient is a 68 year old M presenting to ED with a chief complaint of lower back pain since 05/16/19. On 05/16/19 patient was doing a lot of lifting work and felt pain in his lower back, left hip radiating through the buttocks down the back of left leg to the ankle but not the foot. Patient states he has spasms and cannot stand up. Patient has a history of disc herniation surgery in neck and back in [place]. Patient takes Ibuprofen and Oxycodone when needed, which was rare. Patient denies having problems urinating and having bowel movements.The patient rates the pain 8/10 in severity. Symptoms aggravated by nothing. Symptoms alleviated by nothing. Patient denies fevers, chills. L spine CT IMPRESSION: Multilevel degenerative disc disease is noted. There is grade 1 spondylolisthesis of L4 on 5 with marked facet hypertrophy and broad-based protrusion which appears to narrow both intervertebral foramen. Mild facet arthropathy is noted at L2-L3 and L3-L4. At L1-L2 there is retrolisthesis noted. No evidence of focal protrusion fracture is noted. In the ED course the patient was given morphine, Decadron, and Norflex. After these medications the patients symptoms have significantly improved. The patient was able to ambulate with mild pain that is much improved. The patient doesnt have any urinary or bowel dysfunction and no saddle anesthesia. Therefore the patient will be discharged home with follow- up with primary care physician. He requested to be referred to a different primary care physician therefore he will be referred to the [facility] [place] outpatient PCPs. Patient is hemodynamically stable alert and oriented 3. - Diagnoses Provider Diagnoses: Back pain Discharge ED - Sign-Out/Discharge Documenting (check all that apply): Patient Departure - Discharge Patient Received Moderate/Deep Sedation with Procedure: No - Discharge Plan Condition: Stable Disposition: HOME Prescriptions: Ibuprofen TAB* [Motrin TAB* 600 MG] 600 mg PO Q8H PRN #30 tab PRN Reason: Pain - Mild Methocarbamol TAB* [Robaxin 500 MG TAB*] 500 mg PO TID PRN #12 tab PRN Reason: Spasms - Back methylPREDNISolone [Medrol Dosepak 4 MG*] 0 mg PO .SEE MARIAM INSTRUCTION #1 mariam Patient Education Materials: Back Pain (ED) Referrals: [facility] [Outside] - 3 Days Additional Instructions: FOLLOW UP WITH YOUR PRIMARY CARE PROVIDER IN 3 DAYS. RETURN TO THE ED FOR ANY WORSENING OR NEW SYMPTOMS. - Billing Disposition and Condition Condition: STABLE Disposition: Home - Attestation Statements Document Initiated by Scribe: Yes Documenting Scribe: Tapan Butler Provider For Whom Scribe is Documenting (Include Credential): Alex Paiz MD Scribe Attestation: I, Tapan Butler, scribed for Alex Paiz MD on 05/23/19 at 1848. Scribe Documentation Reviewed: Yes Provider Attestation: The documentation as recorded by the scribe, Tapan Butler accurately reflects the service I personally performed and the decisions made by me, Alex Paiz MD Status of Scribe Document: Viewed
[2019-05-23 19:03] VITALS: BP 162/91
== END 2019-05-23 19:02 | disposition home or self-care (01) ==
LOC: ED 15:26
DX: M54.5 Low back pain (principal); M51.36 Other intervertebral disc degeneration, lumbar region; E03.9 Hypothyroidism, unspecified; E11.9 Type 2 diabetes mellitus without complications; I10 Essential (primary) hypertension; K21.9 Gastro-esophageal reflux disease without esophagitis; F41.9 Anxiety disorder, unspecified; F32.9 Major depressive disorder, single episode, unspecified; Z79.891 Long term (current) use of opiate analgesic; Z86.73 Personal history of transient ischemic attack (TIA), and cerebral infarction without residual deficits; Z79.899 Other long term (current) drug therapy; Z88.8 Allergy status to other drugs, medicaments and biological substances; Z87.891 Personal history of nicotine dependence
CPT/HCPCS: 72131; 96374; 96375; 99284; J1100; J2270; J2360